=== PATIENT | female | born 1990 | race African-American/Black ===

== ENCOUNTER 2016-07-11 04:20 | Emergency (ER) | payer MEDICAID ==
[2016-07-11 04:27] VITALS: BP 111/62
== END 2016-07-11 05:55 | disposition left against medical advice (07) ==
LOC: ER 04:20
DX: Z53.21 Procedure and treatment not carried out due to patient leaving prior to being seen by health care provider (principal)

== ENCOUNTER 2016-08-17 15:28 | Outpatient (CLI) | payer MEDICAID ==
--- NOTE | 2016-08-17 16:00 | L&D Flow Sheet ---
LD Flowsheet Datetime Report Generated by CPN: 08/17/2016 16:00 Datetime: 08/17/2016 15:55 Pain Pain Scale: 3 (Kinga Candelario, RN) Pain Presence: Intermittent (Kinga Candelario, RN) Pain Type: Cramping (Kinga Candelario, RN) Pain Location: Abdomen (Kinga Candelario, RN) Vaginal Exam Vaginal Bleeding: None (Kinga Candelario, RN) Maternal Assessment Level of Consciousness: Fully Conscious (Kinga Candelario, RN) DTR's/Clonus: DTRs 2+; No Clonus (Kinga Candelario, RN) Breath Sounds, Left: Clear and Equal (Kinga Candelario, RN) Breath Sounds, Right: Clear and Equal (Kinga Candelario, RN) Nausea/Vomiting: Denies (Kinga Candelario, RN) RUQ Epigastric Pain: Denies (Kinga Candelario, RN) Datetime: 08/17/2016 15:54 Vital Signs NBP Sys/Jennifer/Mean (mmHg): 96 (QS system process) : 53 (QS system process) : 70 (QS system process) Pulse: 72 (QS system process)
[2016-08-17 16:19] LABS: APPEARANCE,URINE SLIGHTLY-CLOUDY; BILIRUBIN,URINE NEGATIVE (NEGATIVE); GLUCOSE, URINE NEGATIVE (NEGATIVE); KETONES,URINE NEGATIVE (NEGATIVE); LEUKOCYTE ESTERASE,URINE LARGE (NEGATIVE); NITRITE,URINE NEGATIVE (NEGATIVE); PROTEIN,URINE NEGATIVE (NEGATIVE); URINE SPECIFIC GRAVITY 1.011; UROBILINOGEN,URINE NEGATIVE mg/dL (<2.0)
[2016-08-17 16:32] LABS: URINE BARBITURATES SCREEN NEGATIVE; URINE METHADONE SCREEN NEGATIVE; URINE OPIATES LOW NEGATIVE; URINE PHENCYCLIDINE SCREEN NEGATIVE
[2016-08-17] MEDS ORDERED: ONDANSETRON HCL 8 MG TABLET ONE (16:32)
--- NOTE | 2016-08-17 16:47 | Non Stress Test Report ---
Non Stress Test Datetime Report Generated by CPN: 08/17/2016 16:47 DEMOGRAPHIC EGA NST: 35.1 INDICATION Indication for Study: Ordered by Provider Indication for Study (NST) Other: Labor Check MONITORING Monitor Explained: Monitor Explained; Test Explained; Patient Verbalized Understanding Time on Monitor: 08/17/2016 15:51 Time off Monitor: 08/17/2016 16:31 NST Duration: 40 NST INTERVENTIONS NST Interventions: PO Hydration Physician Notified NST: Dr. Yoo BABY A: [id number] BABY A Movement : Present Contraction Frequency : 0 FHR Baseline : 140 Accelerations : 15X15 Decelerations : None Variability : Moderate 6-25bpm NST Review: Meets Criteria for Reactive NST NST Review and Verified By : PAULA Arriaga Results: Reactive NST REPORT Report Trigger: Send Report
== END 2016-08-17 16:37 | disposition home or self-care (01) ==
LOC: LC 15:28
PROVIDERS: ATTEND Student in an Organized Health Care Education/Training Program
PROC: 4A1HXCZ Monitoring of Products of Conception, Cardiac Rate, External Approach (ICD-10-PCS; principal; 2016-08-17)
DX: Z34.93 Encounter for supervision of normal pregnancy, unspecified, third trimester (principal); Z36 Encounter for antenatal screening of mother; Z3A.35 35 weeks gestation of pregnancy
CPT/HCPCS: 59025; 81001; 80307; S0119

== ENCOUNTER 2016-09-08 15:08 | Outpatient (CLI) | payer MEDICAID ==
--- NOTE | 2016-09-08 20:01 | L&D Flow Sheet ---
LD Flowsheet Datetime Report Generated by CPN: 09/08/2016 20:00 Datetime: 09/08/2016 19:30 Uterine Activity Monitor Mode: External (Eladio Quiroz, RN) Frequency (min): None (Eladio Quiroz, RN) Resting Tone (Palpate): Relaxed (Eladio Quiroz, RN) Assessment A Monitor Mode: External US (Eladio Richie, RN) FHR Baseline Rate : 140 (Eladio Richie, RN) Variability: Moderate 6-25 bpm (Eladio Richie, RN) Accelerations: 15X15 (Eladio Richie, RN) Decelerations: None (Eladio Richie, RN) Datetime: 09/08/2016 19:27 Vital Signs NBP Sys/Jennifer/Mean (mmHg): 117 (QS system process) : 69 (QS system process) : 81 (QS system process) Pulse: 83 (QS system process) Datetime: 09/08/2016 19:20 Maternal Assessment Level of Consciousness: Fully Conscious (Eladio Quiroz, RN) Headache: Denies (Eladio Quiroz, RN) Nausea/Vomiting: Denies (Eladio Quiroz, RN) RUQ Epigastric Pain: Denies (Eladio Quiroz, RN) Datetime: 09/08/2016 19:00 Uterine Activity Monitor Mode: External (Eladio Richie, RN) Frequency (min): None noted (Eladio Richie, RN) Resting Tone (Palpate): Relaxed (Eladio Richie, RN) Contraction Comments: Sporadic irritability (Eladio Richie, RN) Assessment A Monitor Mode: External US (Eladio Richie, RN) FHR Baseline Rate : 140 (Eladio Richie, RN) Variability: Moderate 6-25 bpm (Eladio Richie, RN) Accelerations: 15X15 (Eladio Richie, RN) Decelerations: None (Eladio Richie, RN) Datetime: 09/08/2016 18:30 Uterine Activity Monitor Mode: External; Palpation (Hyun Negro, RNC) Frequency (min): Irr (Hyun Negro, RNC) Duration (sec): 50-90 (Hyun Negro, RNC) Resting Tone (Palpate): Relaxed (Hyun Negro, RNC) Assessment A Monitor Mode: External US (Hyun Negro, RNC) FHR Baseline Rate : 155 (Hyun Negro, RNC) Variability: Moderate 6-25 bpm (Hyun Negro, RNC) Accelerations: 15X15 (Hyun Negro, RNC) Decelerations: None (Hyun Negro, RNC) Datetime: 09/08/2016 18:00 Uterine Activity Monitor Mode: External; Palpation (Hyun Negro, RNC) Frequency (min): Irr (Hyun Negro, RNC) Resting Tone (Palpate): Relaxed (Hyun Negro, RNC) Assessment A Monitor Mode: External US (Hyun Negro, RNC) FHR Baseline Rate : 145 (Hyun Negro, RNC) Variability: Moderate 6-25 bpm (Hyun Negro, RNC) Accelerations: 15X15 (Hyun Negro, RNC) Decelerations: None (Hyun Negro, RNC) Patient Care IV/Blood Work: IV Saline Locked (Hyun Tom, RNC) Datetime: 09/08/2016 17:30 Uterine Activity Monitor Mode: External (Hyun Tom, RNC) Frequency (min): Irr (Hyun Tom, RNC) Resting Tone (Palpate): Relaxed (Hyun Tom, RNC) Assessment A Monitor Mode: External US (Hyun Negro, RNC) FHR Baseline Rate : 145 (Huyn Negro, RNC) Variability: Moderate 6-25 bpm (Hyun Negro, RNC) Accelerations: 15X15 (Hyun Negro, RNC) Decelerations: None (Hyun Negro, RNC) Datetime: 09/08/2016 17:00 Uterine Activity Monitor Mode: External; Palpation (Hyun Negro, RNC) Frequency (min): Irr (Hyun Negro, RNC) Duration (sec): 60-90 (Hyun Negro, RNC) Resting Tone (Palpate): Relaxed (Hyun Negro, RNC) Assessment A Monitor Mode: External US (Hyun Negro, RNC) FHR Baseline Rate : 135 (Hyun Negro, RNC) Variability: Moderate 6-25 bpm (Hyun Negro, RNC) Accelerations: 15X15 (Hyun Negro, RNC) Decelerations: None (Hyun Negro, RNC) Datetime: 09/08/2016 16:30 Uterine Activity Monitor Mode: External; Palpation (Hyun Negro, RNC) Frequency (min): Irr (Hyun Negro, RNC) Quality: Mild (Hyun Negro, RNC) Resting Tone (Palpate): Relaxed (Hyun Negro, RNC) Assessment A Monitor Mode: External US (Hyun Negro, RNC) FHR Baseline Rate : 135 (Hyun Negro, RNC) Variability: Moderate 6-25 bpm (Hyun Negro, RNC) Accelerations: 15X15 (Hyun Negro, RNC) Decelerations: None (Hyun Negro, RNC) Datetime: 09/08/2016 16:15 Patient Care IV/Blood Work: IV Started; IV Bolus Started (Hyun Negro, RNC)
== END 2016-09-08 20:57 | disposition home or self-care (01) ==
LOC: LC 15:08
PROVIDERS: ATTEND Obstetrics & Gynecology
PROC: 4A1HXCZ Monitoring of Products of Conception, Cardiac Rate, External Approach (ICD-10-PCS; principal; 2016-09-08)
DX: O47.1 False labor at or after 37 completed weeks of gestation (principal); Z3A.38 38 weeks gestation of pregnancy
CPT/HCPCS: 59025; 76815

== ENCOUNTER 2016-09-14 23:58 | Outpatient (CLI) | payer MEDICAID ==
[2016-09-15 00:35] LABS: APPEARANCE,URINE CLEAR; BILIRUBIN,URINE NEGATIVE (NEGATIVE); GLUCOSE, URINE NEGATIVE (NEGATIVE); KETONES,URINE NEGATIVE (NEGATIVE); LEUKOCYTE ESTERASE,URINE MODERATE (NEGATIVE); NITRITE,URINE NEGATIVE (NEGATIVE); PROTEIN,URINE NEGATIVE (NEGATIVE); UROBILINOGEN,URINE NEGATIVE mg/dL (<2.0)
[2016-09-15 01:02] LABS: URINE BARBITURATES SCREEN NEGATIVE; URINE METHADONE SCREEN NEGATIVE; URINE OPIATES LOW NEGATIVE; URINE PHENCYCLIDINE SCREEN NEGATIVE
[2016-09-15] MEDS ORDERED: ZOLPIDEM TARTRATE 5 MG TABLET PO ONE (01:53)
[2016-09-15] MEDS ORDERED: ZOLPIDEM TARTRATE 5 MG TABLET ONE (02:01)
--- NOTE | 2016-09-15 02:23 | Non Stress Test Report ---
Non Stress Test Datetime Report Generated by CPN: 09/15/2016 02:22 DEMOGRAPHIC EGA NST: 39.2 INDICATION Indication for Study: Other Indication for Study (NST) Other: LC URINE RESULTS Urine Protein, NST: Negative Urine Ketones - NST: Negative Urine Glucose - NST: Negative Urine Blood - NST: Positive MONITORING Monitor Explained: Monitor Explained; Test Explained; Patient Verbalized Understanding Time on Monitor: 09/15/2016 00:19 Time off Monitor: 09/15/2016 01:54 NST Duration: 95 NST INTERVENTIONS NST Interventions: PO Hydration Physician Notified NST: Dr. Neilsen BABY A: [id number] BABY A Movement : Present Contraction Frequency : 1.5-10 FHR Baseline : 135 Accelerations : 15X15 Decelerations : None Variability : Moderate 6-25bpm NST Review: Meets Criteria for Reactive NST NST Review and Verified By : Eddy Dickinson RN NST Results: Reactive NST REPORT Report Trigger: Send Report
--- NOTE | 2016-09-15 04:46 | L&D General Admission ---
General Admit Datetime Report Generated by CPN: 09/15/2016 04:45 INFORMATION Patient Age: 26 (08/17/2016 15:28:QS system process) EDC: 09/20/2016 00:00 (08/17/2016 15:46:Kinga Palomino RN) : 1 (08/17/2016 15:46:Kinga Palomino RN) Para: 0 (08/17/2016 16:46:Kinga Palomino RN) Para: 0 (08/17/2016 15:46:Kinga Palomino RN) Term: 0 (08/17/2016 15:46:Kinga Palomino RN) : 0 (08/17/2016 15:46:Kinga Palomino RN) Spontaneous Abortions: 0 (08/17/2016 15:46:Kinga Palomino RN) Induced Abortions: 0 (08/17/2016 15:46:Kinga Palomino RN) Livin (08/17/2016 15:46:Kinga Palomino RN) Cesareans: 0 (08/17/2016 15:46:Kinga Palomino RN) VBACs: 0 (08/17/2016 15:46:Kinga Palomino RN) Ectopic: 0 (08/17/2016 15:46:Kinga Palomino RN) Multiple Births: 0 (08/17/2016 15:46:Kinga Palomino RN) Baby, Number in Womb: 1 (08/17/2016 16:46:Kinga Palomino RN) Baby, Number in Womb: 0 (08/17/2016 15:46:Kinga Palomino RN) CARE Primary It Desktop Support Specialist: [facility] (08/17/2016 15:46:Kinga Palomino RN) Adequate Care: Yes (08/17/2016 15:46:Kinga Palomino RN) Height (in): 60 (08/17/2016 16:14:QS system process) ALLERGIES Medication Allergy: No (08/17/2016 15:46:Kinga Palomino RN) Medication Allergies: No Known Allergies (07/11/2016) (08/17/2016 15:28:QS system process) Latex Allergy: No Latex Allergies (08/17/2016 15:46:Kinga Palomino RN) COMMUNICATION Primary Language: Irish (08/17/2016 15:46:Kinga Palomino RN) Medical Tx Preferred Language: Irish (08/17/2016 15:46:Kinga Palomino RN) Communication Barrier(s): None (08/17/2016 15:46:Kinga Palomino RN) DEMOGRAPHICS Address: [address] [place] [address], [address] [place] [address] (09/08/2016 15:08:QS system process) Address: [address] [place] [address] (08/17/2016 15:28:QS system process) Zipcode: [address] (08/17/2016 15:28:QS system process) Home (08/17/2016 15:28:QS system process) Work (09/08/2016 15:08:QS system process) Work (08/17/2016 15:28:QS system process) SSN: [id number] (08/17/2016 15:28:QS system process) Next of Kin Name: YONNY ELLIS (08/17/2016 15:28:QS system process) Next of Kin (08/17/2016 15:28:QS system process) Next of Kin Relationship: OR (08/17/2016 15:28:QS system process) Date of : 1990 (08/17/2016 15:28:QS system process) Marital Status: Single (08/17/2016 15:28:QS system process) Sex: Female (08/17/2016 15:28:QS system process) Race: (08/17/2016 15:28:QS system process) Ethnicity: Non- or (08/17/2016 15:28:QS system process) Anglican: None (08/17/2016 15:28:QS system process) DRUG AND ALCOHOL USE Alcohol: No (08/17/2016 15:46:Kinga Palomino RN) Cigarettes: Former Smoker. [id number] (08/17/2016 15:46:Kinga Palomino RN) Marijuana: No (08/17/2016 15:46:Kinga Palomino RN) Cocaine: No (08/17/2016 15:46:Kinga Palomino RN) Other Illicit Drugs: No (08/17/2016 15:46:Kinga Palomino RN) VACCINE HISTORY Influenza Vaccine: Yes (08/17/2016 15:46:Nicole Whitfield RN) Pneumococcal Vaccine: No (08/17/2016 15:46:Nicole Whitfield RN) Tetanus Vaccine: Yes (08/17/2016 15:46:Kinga Palomino RN) Tdap Vaccine: Yes (08/17/2016 15:46:Kinga Palomino RN) Hepatitis B Vaccine: Yes (08/17/2016 15:46:Nicole Whitfield RN) Receptionist Telephone Operator: Marjan (08/17/2016 15:46:Nicole Whitfield RN) Feeding Preference: Breast (08/17/2016 15:46:Nicole Whitfield RN) Tubal Ligation: No (08/17/2016 15:46:Nicole Whitfield RN) Tubal Authorization Signed: N/A (08/17/2016 15:46:Nicole Whitfield RN) Consent: N/A (08/17/2016 15:46:Nicole Whitfield RN) Consent Signed: N/A (08/17/2016 15:46:Nicole Whitfield RN) Other Pain Management Plans: unsure (08/17/2016 15:46:Nicole Whitfield RN) Other Labor and Delivery Plans: skin to skin (08/17/2016 15:46:Nicole Whitfield RN) Cultural/Spritual Practice: No (08/17/2016 15:46:Nicole Whitfield RN) Spir/Cult Dietary Needs: No (08/17/2016 15:46:Nicole Whitfield RN) LIVING SITUATION/DISCHARGE PLAN Living Arrangements: Apartment (08/17/2016 15:46:Nicole Whitfield RN) Adequate Access to:: Electric; Heat; Refrigeration; Plumbing/Running water; Phone; Transportation (08/17/2016 15:46:Nicole Whitfield RN) WIC Program: Yes (08/17/2016 15:46:Nicole Whitfield RN) Discharge Film Mounter Person: Anny Parkeri/girlfriend (08/17/2016 15:46:Nicole Whitfield RN) Person to Help after Discharge: Anny (08/17/2016 15:46:Nicole Whitfield RN) Currently Using Commun Resources: Yes (08/17/2016 15:46:Nicole Whitfield RN) Specify Current Resource Used: Medicaid (08/17/2016 15:46:Nicole Whitfield RN) Outside Agency/Model Builder: No (08/17/2016 15:46:Nicole Whitfield RN) Car Seat for Discharge: Yes (08/17/2016 15:46:Nicole Whitfield RN) Adoption Requested: No (08/17/2016 15:46:Nicole Whitfield RN) Pt Contact w/ Post : N/A (08/17/2016 15:46:Nicole Whitfield RN) LABS Blood Type: A Positive (08/17/2016 15:46:Nicole Whitfield RN) Group Beta Strep: positive (08/17/2016 15:46:Nicole Whitfield RN) Gonorrhea: Negative (08/17/2016 15:46:Nicole Whitfield RN) Chlamydia: Negative (08/17/2016 15:46:Nicole Whitfield RN) RPR/VDRL: Nonreactive (08/17/2016 15:46:Nicole Whitfield RN) HIV Exposure Test: Negative (08/17/2016 15:46:Nicole Whitfield RN) Hepatitis B: Negative (08/17/2016 15:46:Nicole Whitfield RN) Rubella: Non-Immune (08/17/2016 15:46:Nicole Whitfield RN) Varicella: Non Susceptible (08/17/2016 15:46:Nicole Whitfield RN) OB/PREVIOUS HISTORY History of Previous : No (08/17/2016 15:46:Kinga Palomino RN) History of Gestational Diabetes: No (08/17/2016 15:46:Kinga Palomino RN) History of PIH: No (08/17/2016 15:46:Kinga Palomino RN) History of Incompetent Cervix: No (08/17/2016 15:46:Kinga Palomino RN) History of Placenta Previa/Abrup: No (08/17/2016 15:46:Kinga Palomino RN) History of Macrosomia: No (08/17/2016 15:46:Kinga Palomino RN) History of IUGR: No (08/17/2016 15:46:Kinga Palomino RN) History of Hemorrhage: No (08/17/2016 15:46:Kinga Palomino RN) History of Loss/Stillborn: No (08/17/2016 15:46:Kinga Palomino RN) History of : No (08/17/2016 15:46:Kinga Palomino RN) History of D (Rh) Sensitization: No (08/17/2016 15:46:Kinga Palomino RN) History Recurrent Loss/Stillborn: No (08/17/2016 15:46:Kinga Palomino RN) History Depression/PP Depression: No (08/17/2016 15:46:Kinga Palomino RN) History of Uterine Anomaly/MARIS: No (08/17/2016 15:46:Kinga Palomino RN) History of Infertility: No (08/17/2016 15:46:Kinga Palomino RN) History of ART Treatment: No (08/17/2016 15:46:Kinga Palomino RN) History of MARIS: No (08/17/2016 15:46:Kinga Palomino RN) Comments Obstetrical History: G1: current (08/17/2016 15:46:Nicole Whitfield RN) MEDICAL HISTORY Med Hx Diabetes: No (08/17/2016 15:46:Kinga Palomino RN) Med Hx Hypertension: No (08/17/2016 15:46:Kinga Palomino RN) Med Hx Heart Disease: No (08/17/2016 15:46:Kinga Palomino RN) Med Hx Autoimmune Disorder: No (08/17/2016 15:46:Kinga Palomino RN) Med Hx Kidney Disease/UTI: No (08/17/2016 15:46:Kinga Palomino RN) Med Hx Neurologic/Epilepsy: No (08/17/2016 15:46:Kinga Palomino RN) Med Hx Psychiatric Disorders: No (08/17/2016 15:46:Kinga Palomino RN) Med Hx Hepatitis/Liver Disease: No (08/17/2016 15:46:Kinga Palomino RN) Med Hx Varicosities/Phlebitis: No (08/17/2016 15:46:Kinga Palomino RN) Med Hx Thyroid Dysfunction: No (08/17/2016 15:46:Kinga Palomino RN) Med Hx Trauma/Violence: No (08/17/2016 15:46:Kinga Palomino RN) Med Hx Blood Transfusion: No (08/17/2016 15:46:Kinga Palomino RN) Med Hx Pulmonary (Asthma,TB): No (08/17/2016 15:46:Kinga Palomino RN) Med Hx Breast: No (08/17/2016 15:46:Kinga Palomino RN) Med Hx COMPENSATION AND HRIS ANALYST Surgery: No (08/17/2016 15:46:Kinga Palomino RN) Med Hx Hospitalization/Surgery: No (08/17/2016 15:46:Kinga Palomino RN) Med Hx Anesthetic Complications: No (08/17/2016 15:46:Kinga Palomino RN) Med Hx Abnormal Pap Smear: No (08/17/2016 15:46:Kinga Palomino RN) Other Medical Diseases: No (08/17/2016 15:46:Kinga Palomino RN) Med Hx Significant Family Hx: No (08/17/2016 15:46:Kinga Palomino RN) INFECTIOUS HISTORY Inf Hx Gonorrhea: No (08/17/2016 15:46:Kinga Palomino RN) Inf Hx Chlamydia: No (08/17/2016 15:46:Kinga Palomino RN) Inf Hx Syphilis: No (08/17/2016 15:46:Kinga Palomino RN) Inf Hx HIV/AIDS: No (08/17/2016 15:46:Kinga Palomino RN) Inf Hx Human Papilloma Virus: No (08/17/2016 15:46:Kinga Palomino RN) Inf Hx Pt/Partner Genital Herpes: No (08/17/2016 15:46:Kinga Palomino RN) Inf Hx Tuberculosis/Exposure: No (08/17/2016 15:46:Kinga Palomino RN) Inf Hx Hepatitis B,C: No (08/17/2016 15:46:Kinga Palomino RN) Inf Hx Rash or Viral Illness: No (08/17/2016 15:46:Kinga Palomino RN) GENETIC HISTORY Gen Hx Age >=35 at MARYA: No (08/17/2016 15:46:Kinga Palomino RN) Gen Hx Thalassemia: No (08/17/2016 15:46:Kinga Palomino RN) Gen Hx Congenital Heart Defect: No (08/17/2016 15:46:Kinga Palomino RN) Gen Hx Neural Tube Defect: No (08/17/2016 15:46:Kinga Palomino RN) Gen Hx Down's Syndrome: No (08/17/2016 15:46:Kinga Palomino RN) Gen Hx Jose Raul-Sachs: No (08/17/2016 15:46:Kinga Palomino RN) Gen Hx Sindhu: No (08/17/2016 15:46:Kinga Palomino RN) Gen Hx Familial Dysautonomia: No (08/17/2016 15:46:Kinga Palomino RN) Gen Hx Sickle Cell Disease/Trait: No (08/17/2016 15:46:Kinga Palomino RN) Gen Hx Hemophilia/Blood Disorder: No (08/17/2016 15:46:Kinga Palomino RN) Gen Hx Muscular Dystrophy: No (08/17/2016 15:46:Kinga Palomino RN) Gen Hx Cystic Fibrosis: No (08/17/2016 15:46:Kinga Palomino RN) Gen Hx Huntingtons Chorea: No (08/17/2016 15:46:Kinga Palomino RN) Gen Hx Mental Retardation/Autism: No (08/17/2016 15:46:Kinga Palomino RN) Gen Hx Tested for Fragile X: No (08/17/2016 15:46:Kinga Palomino RN) Gen Hx Other Inher/Chromosomal: No (08/17/2016 15:46:Kinga Palomino RN) Gen Hx Maternal Metabolic DO: No (08/17/2016 15:46:Kinga Palomino RN) Gen Hx Pt Father or FOB Defect: No (08/17/2016 15:46:Kinga Palomino RN) Gen Hx Other Genetic History: No (08/17/2016 15:46:Kinga Palomino RN) Gen Hx Drugs/Meds since LMP: No (08/17/2016 15:46:Kinga Palomino RN)
--- NOTE | 2016-09-15 04:46 | L&D Current Admission ---
Current Admit Datetime Report Generated by CPN: 09/15/2016 04:45 ADMISSION INFORMATION Chief Complaint: Contractions (09/15/2016 00:23:Nicole Whitfield RN) Chief Complaint: flu symptoms, cramping, vomiting (08/17/2016 15:55:Kinga Palomino RN)
--- NOTE | 2016-09-15 04:46 | L&D Discharge Summary ---
OB Discharge Summary Datetime Report Generated by CPN: 09/15/2016 04:45 DISCHARGE DIAGNOSIS Diagnosis/Symptoms: False Labor Diagnoses/Symptoms Other: Not in labor Gestation: 39.1 Number of Babies in Womb: 1 Parity: 0 DIET/ACTIVITY/RESTRICTIONS Diet: Regular Activity: Normal Activity TEACHING/INSTRUCTIONS/REFERRALS Instructions Given To: patient and sig other Instructions Understood: Patient Verbalized Understanding; Support Person Verbalized Understanding Referrals: None Educational Materials- Other: care notes on term labor instructions and kick counts DISCHARGE INFORMATION Discharged AMA: No Discharge Date/Time: 09/15/2016 02:09 Discharged To: Home Discharge Provider Name: Dr. Yoo Discharge Method: Wheelchair Condition: Stable FOLLOW UP INFORMATION Follow Up With: [facility] Follow Up On: As Scheduled Follow Up Phone Number: Other-Annotate Comments: Pt. d/c to home at this time via wheelchair and in stable condition. Pt. verbalizes understanding for POC and denied any further needs at this time. Pt. denies any questions or concerns prior to d/c states she has an appt in the office tomorrow that she will go to. All pt. belongings were taken with pt. Pt. off of unit and care relinquished at this time
--- NOTE | 2016-09-15 04:46 | L&D Admission Assessment ---
LD ADM ASMT Datetime Report Generated by CPN: 09/15/2016 04:45 Weight (lb): 150 (09/15/2016 01:04:QS system process) Weight (kg): 68.2 (09/15/2016 01:04:QS system process) BMI: 29.3 (09/15/2016 01:04:QS system process) Pain Scale: 5 (09/15/2016 00:23:Nicole Whitfield RN) Pain Scale: 5 (09/15/2016 00:19:Nicole Whitfield RN) Pain Presence: Intermittent (09/15/2016 00:23:Nicole Whitfield RN) Pain Presence: Intermittent (09/15/2016 00:19:Nicole Whitfield RN) Pain Type: Contraction (09/15/2016 00:23:Nicole Whitfield RN) Pain Type: Contraction (09/15/2016 00:19:Nicole Whitfield RN) Pain Location: Abdomen (09/15/2016 00:23:Nicole Whitfield RN) Pain Location: Abdomen (09/15/2016 00:19:Nicole Whitfield RN) Pain Comments: pressure 2/3 when not having ctn's (09/15/2016 00:19:Nicole Whitfield RN) Frequency (min): 1.5-5.5 (09/15/2016 01:50:Nicole Whitfield RN) Frequency (min): 4.5-7 (09/15/2016 01:20:Nicole Whitfield RN) Frequency (min): 7-9 (09/15/2016 00:50:Nicole Nahid, RN) Frequency (min): 7-10 (09/15/2016 00:23:Nicole Nahid, RN) Duration (sec): 50-100 (09/15/2016 01:50:Nicole Nahid, RN) Duration (sec): 80-110 (09/15/2016 01:20:Nicole Nahid, RN) Duration (sec): 80-100 (09/15/2016 00:50:Nicole Nahid, RN) Quality: Moderate (09/15/2016 01:50:Nicole Nahid, RN) Quality: Moderate (09/15/2016 01:20:Nicole Nahid, RN) Quality: Moderate (09/15/2016 00:50:Nicole Nahid, RN) Pattern: Normal: <= 5 Contractions in 10 Minutes (09/15/2016 01:50:Nicole Nahid, RN) Pattern: Normal: <= 5 Contractions in 10 Minutes (09/15/2016 01:20:Nicole Nahid, RN) Pattern: Normal: <= 5 Contractions in 10 Minutes (09/15/2016 00:50:Nicole Nahid, RN) Resting Tone [place]: Relaxed (09/15/2016 01:50:Nicole Nahid, RN) Resting Tone [place]: Relaxed (09/15/2016 01:20:Nicole Nahid, RN) Resting Tone [place]: Relaxed (09/15/2016 00:50:Nicole Nahid, RN) Dilatation (cm): 3.0 (09/15/2016 01:24:Nicole Nahid, RN) Dilatation (cm): 2.5 (09/15/2016 00:16:Nicole Nahid, RN) Effacement (%): 80 (09/15/2016 01:24:Nicole Nahid, RN) Effacement (%): 80 (09/15/2016 00:16:Nicole Nahid, RN) Station: -1 (09/15/2016 01:24:Nicole Nahid, RN) Station: -1 (09/15/2016 00:16:Nicole Nahid, RN) Membranes Status: Intact (09/15/2016 00:23:Nicole Nahid, RN) Heart Rhythm: Regular (09/15/2016 00:23:Nicole Whitfield RN) Nailbeds: [place] (09/15/2016 00:23:Nicole Whitfield RN) Capillary Refill: Less than 3 Seconds (09/15/2016 00:23:Nicole Whitfield RN) Lower Extremities Edema: None (09/15/2016 00:23:Nicole Whitfield RN) Lower Extremities Edema Degree: None (09/15/2016 00:23:Nicole Whitfield RN) Upper Extremities Edema: None (09/15/2016 00:23:Nicole Whitfield RN) Upper Extremities Edema Degree: None (09/15/2016 00:23:Nicole Whitfield RN) Facial Edema: None (09/15/2016 00:23:Nicole Whitfield RN) Remy's Sign Left Leg: Negative (09/15/2016 00:23:Nicole Whitfield RN) Remy's Sign Right Leg: Negative (09/15/2016 00:23:Nicole Whitfield RN) DVT Risk Age: Age less than 41 years (09/15/2016 00:23:Nicole Whitfield RN) DVT Risk BMI: BMI<31 (09/15/2016 00:23:Nicole Whitfield RN) DVT Risk Surgery: None Applicable (09/15/2016 00:23:Nicole Whitfield RN) DVT Risk Other: Women Only- or (<1 month) (09/15/2016 00:23:Nicole Whitfield RN) DVT Risk Total: 1 (09/15/2016 00:23:QS system process) DVT Risk Text: Low Risk (<10%) No specific measures, early ambulation (09/15/2016 00:23:QS system process) Respiratory Effort: Unlabored; Regular Rhythm (09/15/2016 00:23:Nicole Whitfield RN) Breath Sounds, Left: Clear and Equal (09/15/2016 00:23:Nicole Whitfield RN) Breath Sounds, Right: Clear and Equal (09/15/2016 00:23:Nicole Whitfield RN) Cough Productivity: None (09/15/2016 00:23:Nicole Whitfield RN) Nausea/Vomiting: Denies (09/15/2016 00:23:Nicole Whitfield RN) Bowel Sounds: Normoactive (09/15/2016 00:23:Nicole Whitfield RN) RUQ Epigastric Pain: Denies (09/15/2016 00:23:Nicole Whitfield RN) Bowel Patterns: Soft, Formed Stool (09/15/2016 00:23:Nicole Whitfield RN) Hemorrhoids: Present (09/15/2016 00:23:Nicole Whitfield RN) Diet Type: Regular diet (09/15/2016 00:23:Nicole Whitfield RN) Last Meal: 09/14/2016 19:00 (09/15/2016 00:23:Nicole Whitfield RN) Bladder: Nondistended (09/15/2016 00:23:Nicole Whitfield RN) Frequency of Urination: No (09/15/2016 00:23:Nicole Whitfield RN) Urination Burning: No (09/15/2016 00:23:Nicole Whitfield RN) CVA Tenderness: No (09/15/2016 00:23:Nicole Whitfield RN) Vaginal Bleeding: Scant (09/15/2016 00:23:Nicole Whitfield RN) Vaginal Discharge Amount: Small (09/15/2016 00:23:Nicole Whitfield RN) Vaginal Discharge Color: White (09/15/2016 00:23:Nicole Whitfield RN) Vaginal Discharge Odor: Non-Odorous (09/15/2016 00:23:Nicole Whitfield RN) Vaginal Discharge Character: Thin (09/15/2016 00:23:Nicole Whitfield RN) Skin Color: Normal for Race (09/15/2016 00:23:Nicole Whitfield RN) Skin Temperature: Warm (09/15/2016 00:23:Nicole Whitfield RN) Skin Moisture: Dry (09/15/2016 00:23:Nicole Whitfield RN) Body Piercings/Tattoos: tattoos-3 piercings- ears (09/15/2016 00:23:Nicole Whitfield RN) [place]rell Scale Sensory Perception: No Impairment- Responds to verbal commands. Has no sensory deficit which would limit ability to feel or voice pain or discomfort (09/15/2016 00:23:Nicole Whitfield RN) Terrell Scale Moisture: Rarely Moist- Skin is usually dry. Linen only requires changing at routine intervals (09/15/2016 00:23:Nicole Whitfield RN) Terrell Scale Activity: Walks Frequently- Walks outside the room at least twice a day and inside room at least every 2 hours during the day. (09/15/2016 00:23:Nicole Whitfield RN) Terrell Scale Mobility: No Limitations- Makes major and frequent changes in position without assistance (09/15/2016 00:23:iNcole Whitfield RN) Terrell Scale Nutrition: Excellent- Eats most of every meal. Never refuses a meal. Usually eats a total of 4 or more servings of meat and dairy products. Occasionally eats between meals. Does not require supplementation (09/15/2016 00:23:Nicole Whitfield RN) Terrell Scale Friction and Shear: No Apparent Problem- Moves in bed and in chair independently and has sufficient muscle strength to lift up completely during move. Maintains good position in bed or chair at all times (09/15/2016 00:23:Nicole Whitfield RN) Terrell Scale Total: 23 (09/15/2016 00:23:QS system process) Terrell Scale Risk: No Risk of Pressure Ulcer Noted at this Time (09/15/2016 00:23:QS system process) Family Support: Significant Other supportive, at bedside frequently (09/15/2016 00:23:Nicole Whitfield RN) Emotional State: Calm/Relaxed (09/15/2016 00:23:Nicole Whitfield RN) Call Porter Within Reach: Yes (09/15/2016 00:23:Nicole Whitfield RN) Side Rails Up: Yes (09/15/2016 00:23:Nicole Whitfield RN) Bed Wheels Locked: Yes (09/15/2016 00:23:Nicole Whitfield RN) Arm Bands Present: Yes (09/15/2016 00:23:Nicole Whitfield RN) Isolation: [place] (09/15/2016 00:23:Nicole Whitfield RN) Fall Risk History of Falling: (0) No (09/15/2016 00:23:Nicole Whitfield RN) Fall Risk Secondary Diagnosis: (0) No (09/15/2016 00:23:Nciole Whitfield RN) Fall Risk Ambulatory Aid: (0) None/Bedrest/Wheelchair/Nurse Assist (09/15/2016 00:23:Nicole Whitfield RN) Fall Risk IV Therapy: (0) No (09/15/2016 00:23:Nicole Whitfield RN) Fall Risk Gait: (0) Normal/Bedrest/Immobile (09/15/2016 00:23:Nicole Whitfield RN) Fall Risk Mental Status: (0) Oriented to Own Ability (09/15/2016 00:23:Nicole Whitfield RN) Fall Risk Score: 0 (09/15/2016 00:23:QS system process) Fall Risk Score Definition: No Risk: No action required (09/15/2016 00:23:QS system process) Recent Exp Communicable Disease: No (09/15/2016 00:23:Nicole Whitfield RN) Cough or Fever: No (09/15/2016 00:23:Nicole Whitfield RN) Foreign Travel Past 10 Days: No (09/15/2016 00:23:Nicole Whitfield RN) Open Wounds or Sores: No (09/15/2016 00:23:Nicole Whitfield RN) Prior Antibiotic Resistance Tx: No (09/15/2016 00:23:Nicole Whitfield RN) Cultures Obtained: Not Applicable (09/15/2016 00:23:Nicole Whitfield RN) Isolation Initiated: No (09/15/2016 00:23:Nicole Whitfield RN) Pt/Family Education: Not Applicable (09/15/2016 00:23:Nicole Whitfield RN) FHR Baseline Rate (bpm) Baby A: 135 (09/15/2016 01:50:Nicole Whitfield RN) FHR Baseline Rate (bpm) Baby A: 130 (09/15/2016 01:20:Nicole Whitfield RN) FHR Baseline Rate (bpm) Baby A: 125 (09/15/2016 00:50:Nicole Whitfield RN) Variability Baby A: Moderate 6-25 bpm (09/15/2016 01:50:Nicole NahidPAULA hogue) Variability Baby A: Moderate 6-25 bpm (09/15/2016 01:20:Nicole Nahid, RN) Variability Baby A: Moderate 6-25 bpm (09/15/2016 00:50:Nicole Nahid, RN) Accelerations Baby A: 15X15 (09/15/2016 01:50:Nicole Whitfield RN) Accelerations Baby A: 15X15 (09/15/2016 01:20:Nicolecarlitos Whitfield RN) Accelerations Baby A: 15X15 (09/15/2016 00:50:Nicole Whitfield RN) Decelerations Baby A: None (09/15/2016 01:50:Nicole Whitfield RN) Decelerations Baby A: None (09/15/2016 01:20:Nicole Whitfield RN) Decelerations Baby A: None (09/15/2016 00:50:Nicole Whitfield RN)
--- NOTE | 2016-09-15 04:46 | L&D Flow Sheet ---
LD Flowsheet Datetime Report Generated by CPN: 09/15/2016 04:45 Datetime: 09/15/2016 02:09 Stage of : OB Triage (Nicole Nahid, RN) Communication Comments: Pt. d/c to home at this time. see discharge summary for more information (Nicole Nahid, RN) Datetime: 09/15/2016 02:00 Communication Comments: Care notes taught and reviewed on kick counts and the labor process. Pt. able to peform teachback with no difficulties noted. Pt. denied any questions or concerns at this time (Nicole Nahid, RN) Datetime: 09/15/2016 01:54 Communication Comments: pt. updated on poc at this time and verbalizes understanding. she denies any questions or concerns (Nicole Nahid, RN) Datetime: 09/15/2016 01:52 NBP Sys/Jennifer/Mean (mmHg): 120 (QS system process) : 60 (QS system process) : 83 (QS system process) Pulse: 62 (QS system process) LaborFlag: OB Triage (QS system process) Datetime: 09/15/2016 01:50 Monitor Mode: External (Nicole Nahid, RN) Frequency (min): 1.5-5.5 (Nicole Nahid, RN) Quality: Moderate (Nicole Nahid, RN) Duration (sec): 50-100 (Nicole Nahid, RN) Duration Criteria: Less than Two 120 Second Contractions (Nicole Nahid, RN) Pattern: Normal: <= 5 Contractions in 10 Minutes (Nicole Nahid, RN) Resting Tone ([place]): Relaxed (Nicole Nahid, RN) Monitor Mode: External US (Nicole Nahid, RN) FHR Baseline Rate : 135 (Nicole Nahid, RN) Variability: Moderate 6-25 bpm (Nicole Nahid, RN) Accelerations: 15X15 (Nicole Nahid, RN) Decelerations: None (Nicole Nahid, RN) Communication Comments: Dr. Martínez called and notified of pt. arrival, complaint, hx, urine results, SVE, FHT, and toco tracing. New orders received that pt. may d/c to home with ambien 10 mg po x1 prior to d/c (Nicole Nahid, RN) Datetime: 09/15/2016 01:38 I/O Interventions: Up to BR (Nicole Nahid, RN) Datetime: 09/15/2016 01:24 Dilatation (cm): 3.0 (Nicole Nahid, RN) Effacement (%): 80 (Nicole Nahid, RN) Station: -1 (Nicole Nahid, RN) Exam by: Inocente Whitfield RN (Nicole Nahid, RN) Vaginal Bleeding: None (Nicole Nahid, RN) Cervix, Consistency: Soft (Nicole Nahid, RN) Cervix, Position: Posterior (Nicole Nahid, RN) Datetime: 09/15/2016 01:22 NBP Sys/Jennifer/Mean (mmHg): 136 (QS system process) : 78 (QS system process) : 103 (QS system process) Pulse: 62 (QS system process) LaborFlag: OB Triage (QS system process) Datetime: 09/15/2016 01:20 Monitor Mode: External; Palpation (Nicole Nahid, RN) Frequency (min): 4.5-7 (Nicole Nahid, RN) Quality: Moderate (Nicole Nahid, RN) Duration (sec): 80-110 (Nicole Nahid, RN) Duration Criteria: Less than Two 120 Second Contractions (Nicole Nahid, RN) Pattern: Normal: <= 5 Contractions in 10 Minutes (Nicole Nahid, RN) Resting Tone (Palpate): Relaxed (Nicole Nahid, RN) Monitor Mode: External US (Nicole Nhaid, RN) FHR Baseline Rate : 130 (Nicole Nahid, RN) Variability: Moderate 6-25 bpm (Nicole Nahid, RN) Accelerations: 15X15 (Nicole Nahid, RN) Decelerations: None (Nicole Nahid, RN) Datetime: 09/15/2016 01:12 Monitor Interventions for UA: [place] Adjusted (Nicole Nahid, RN) Datetime: 09/15/2016 00:53 NBP Sys/Jennifer/Mean (mmHg): 117 (QS system process) : 69 (QS system process) : 88 (QS system process) Pulse: 58 (QS system process) Temperature (F): 98.3 (Nicole Nahid, RN) Temperature (C): 36.8 (QS system process) Temperature Route: Oral (Nicole Nahid, RN) LaborFlag: OB Triage (QS system process) Datetime: 09/15/2016 00:50 Monitor Mode: External; Palpation (Nicole Nahid, RN) Frequency (min): 7-9 (Nicole Nahid, RN) Quality: Moderate (Nicole Nahid, RN) Duration (sec): 80-100 (Nicole Nahid, RN) Duration Criteria: Less than Two 120 Second Contractions (Nicole Nahid, RN) Pattern: Normal: <= 5 Contractions in 10 Minutes (Nicole Nahid, RN) Resting Tone (Palpate): Relaxed (Nicole Nahid, RN) Monitor Mode: External US (Nicole Nahid, RN) FHR Baseline Rate : 125 (Nicole Nahid, RN) Variability: Moderate 6-25 bpm (Nicole Nahid, RN) Accelerations: 15X15 (Nicole Nahid, RN) Decelerations: None (Nicole Nahid, RN) Datetime: 09/15/2016 00:23 Frequency (min): 7-10 (Nicole Nahid, RN) Pain Scale: 5 (Nicole Nahid, RN) Pain Presence: Intermittent (Nicole Nahid, RN) Pain Type: Contraction (Nicole Nahid, RN) Pain Location: Abdomen (Nicole Nahid, RN) Membrane Status: Intact (Nicole Nahid, RN) Vaginal Bleeding: None (Annotations: pt. states she lost her mucous plug earlier) (Nicole Nahid, RN) Breath Sounds, Left: Clear and Equal (Nicole Nahid, RN) Breath Sounds, Right: Clear and Equal (Nicole Nahid, RN) Nausea/Vomiting: Denies (Nicole Nahid, RN) RUQ Epigastric Pain: Denies (Nicole Nahid, RN) LaborFlag: OB Triage (QS system process) Datetime: 09/15/2016 00:22 NBP Sys/Jennifer/Mean (mmHg): 116 (QS system process) : 62 (QS system process) : 81 (QS system process) Pulse: 59 (QS system process) LaborFlag: OB Triage (QS system process) Datetime: 09/15/2016 00:21 Instructional Method: Verbal (Nicole Whitfield RN) Plan of Care: Plan of Care Discussed (Nicole Whitfield RN) Unit Routine: [place] to Room; Call Porter; Bed; Visiting Policy; Waiting Areas (Nicole Whitfield RN) Datetime: 09/15/2016 00:19 Pain Scale: 5 (Nicole Whitfield RN) Pain Presence: Intermittent (Nicloe Whitfield RN) Pain Type: Contraction (Nicole Whitfield, PAULA) Pain Location: Abdomen (Nicole Whitfield RN) Pain Assessment Comments: pressure 2/3 when not having ctn's (Nicole Whitfield RN) Patient Position/Activity: Left Tilt (Nicole Whitfield RN) LaborFlag: OB Triage (QS system process) Datetime: 09/15/2016 00:16 Dilatation (cm): 2.5 (Nicole Whitfield RN) Effacement (%): 80 (Nicole Whitfield RN) Station: -1 (Nicole Whitfield RN) Exam by: Inocente Whitfield RN (Nicole Whitfield RN) Vaginal Bleeding: None (Nicole Whitfield RN) Cervix, Consistency: Soft (Nicole Whitfield RN) Cervix, Position: Posterior (Nicole Whitfield RN) Datetime: 09/15/2016 00:10 Stage of : OB Triage (Nicole Whitfield RN)
--- NOTE | 2016-09-15 04:46 | Antepartum Discharge Summary ---
Antepartum DC Datetime Report Generated by CPN: 09/15/2016 04:45 Diet: Regular (09/15/2016 02:20:Nicole Whitfield RN) Instructions Given To: patient and sig other (09/15/2016 02:20:Nicole Whitfield RN) Instructions Understood: Patient Verbalized Understanding; Support Person Verbalized Understanding (09/15/2016 02:20:Nicole Whitfield RN) Referrals: None (09/15/2016 02:20:Nicole Whitfield RN) Educational Materials- Other: care notes on term labor instructions and kick counts (09/15/2016 02:20:Nicole Whitfield RN) Discharged AMA: No (09/15/2016 02:20:Nicole Whitfield RN) Discharge Date/Time: 09/15/2016 02:09 (09/15/2016 02:20:Nicole Whitfield RN) Discharged To: Home (09/15/2016 02:20:Nicole Whitfield RN) Discharge Method: Wheelchair (09/15/2016 02:20:Nicole Whitfield RN) Condition: Stable (09/15/2016 02:20:Nicole Whitfield RN) Follow Up With: [facility] (09/15/2016 02:20:Nicole Whitfield RN) Follow Up On: As Scheduled (09/15/2016 02:20:Nicole Whitfield RN) Follow Up Phone Number: Other-Annotate (09/15/2016 02:20:Nicole Whitfield RN) Comments: Pt. d/c to home at this time via wheelchair and in stable condition. Pt. verbalizes understanding for POC and denied any further needs at this time. Pt. denies any questions or concerns prior to d/c states she has an appt in the office tomorrow that she will go to. All pt. belongings were taken with pt. Pt. off of unit and care relinquished at this time (09/15/2016 02:20:Nicole Whitfield RN)
== END 2016-09-15 02:09 | disposition home or self-care (01) ==
LOC: LC 23:58
PROVIDERS: ATTEND Specialist
PROC: 4A1HXCZ Monitoring of Products of Conception, Cardiac Rate, External Approach (ICD-10-PCS; principal; 2016-09-14)
DX: O47.1 False labor at or after 37 completed weeks of gestation (principal); Z3A.39 39 weeks gestation of pregnancy
CPT/HCPCS: 59025; 81005; 80307; J3490

== ENCOUNTER 2016-09-15 13:57 | Inpatient (IN) | payer MEDICAID ==
[2016-09-15] MEDS ORDERED: PENICILLIN G POTASSIUM 5,000,000 UNIT in DEXTROSE 5%-WATER 100 ML IV ONE (14:02)
[2016-09-15] MEDS ORDERED: RINGERS SOLUTION,LACTATED 1,000 ML IV ONE (14:02)
[2016-09-15] MEDS ORDERED: PENICILLIN G-K 5 MILLION UNIT VIAL ONE (14:09)
[2016-09-15] MEDS ORDERED: KETOROLAC TROMETHAMINE INJ/PF 30 MG/1 ML SDV ONE (15:12)
[2016-09-15 16:19] LABS: HEMATOCRIT 28.3 % (36.0-47.0); HEMOGLOBIN 9.1 g/dL (12.0-15.5); MEAN CORPUSCULAR VOLUME 91 fl (80-97); RED BLOOD COUNT 3.12 10^6/uL (3.72-5.28); RED CELL DISTRIBUTION WIDTH 14.2 % (11.5-14.0); WHITE BLOOD COUNT 15.8 10^3/uL (4.0-10.5)
[2016-09-15] MEDS: RINGERS SOLUTION,LACTATED 1,000 ML IV PRN ×2 (16:32→17:20)
[2016-09-15] MEDS ORDERED: KETOROLAC TROMETHAMINE INJ/PF 30 MG/1 ML SDV IV ONE (16:48)
[2016-09-15 16:51] LABS: BAND NEUTROPHILS % (MANUAL) 2 % (3-5); BASOPHILS % (MANUAL) 0 % (0-2); EOSINOPHILS % (MANUAL) 0 % (0-6); LYMPHOCYTES % (MANUAL) 4 % (13-45); TOTAL CELLS COUNTED 100
[2016-09-15 16:52] LABS: RBC MORPHOLOGY COMMENT NORMO-CYTIC/CHROMIC
[2016-09-15] MEDS ORDERED: IBUPROFEN 800 MG TABLET ONE (17:17)
--- NOTE | 2016-09-15 17:26 | Admission Physical ---
Datetime Report Generated by CPN: 09/15/2016 17:26 CURRENT ADMISSION Hx Assessment: The History has been Reviewed and is Current Chief Complaint: Uterine Contractions Indication for Induction: Not Applicable Admit Plan: Admit to Unit; Initiate Labor Protocol ALLERGIES Medication Allergies: No Medication Allergies: No Known Allergies (07/11/2016) Latex: No Latex Allergies OBSTETRICAL HISTORY EDC: 09/20/2016 00:00 : 1 Para: 0 Para: 0 Term: 0 : 0 SAB: 0 IAB: 0 Ectopic: 0 Livin Cesareans: 0 VBACs: 0 Multiple Births: 0 Gestational Diabetes: No Rh Sensitization: No Incompetent Cervix: No MARIS: No Infertility: No ART Treatment: No Uterine Anomaly: No IUGR: No Hx Previous C/S: No Macrosomia: No Hx Loss/Stillborn: No PIH: No Hx : No Placenta Previa/Abruption: No Depression/PP Depression: No PTL/PROM: No Post Hemorrhage: No Obstetrical History Comments: G1: current SEE RECORDS Alcohol: No Marijuana : No Cocaine: No Other Illicit Drugs: No Cigarettes: Former Smoker. 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 Heart Disease: No Hosp/Surgery: No Autoimmune Disorder: No Anesthetic Complications: No Kidney Disease: No Abnormal Pap Smear: No Neuro/Epilepsy: No Psychiatric Disorders: No Other Medical Diseases: No Hepatitis/Liver Disease: No Significant Family History: No Varicosities/Phlebitis: No Trauma/Violence : No Thyroid Dysfunction: No INFECTIOUS HISTORY Gonorrhea: No Genital Herpes: No Chlamydia: No Tuberculosis: No Syphilis: No Hepatitis: No HIV/AIDS Exposure: No Rash or Viral Illness: No HPV: No PHYSICAL EXAM General: Normal HEENT: Normal Neurologic: Normal Thyroid: Normal Heart: Normal Lungs: Normal Breast: Normal Back: Normal Abdomen: Normal Genitourinary Exam: Normal Extremities: Normal DTRs: Normal Pelvic Type: Adequate Vital Signs: Reviewed; Within Normal Limits MEMBRANES Membranes: Ruptured Amniotic Fluid Color: Clear FETUS A EGA: 39.2 Monitoring: External US Decelerations: Early; Variable Admit Comment: Pt. sent from office dilated to 10cm. SROM on the way to hospital. Delivered shortly upon arrival. 26yo G1 now P1 Apos, Rubella Non Immune, GBS positive. First dose given upon admission into unit. PLANS FOR LABOR AND DELIVERY Other Pain Management Plans: unsure Feeding Preference: Breast Benefit of Breast Feed Discussed: Yes INFORMED CONSENT Assignment: Maria L Nuñez MD Signature: with User ID: Cristopher : with User ID: [email or web address]
[2016-09-15] MEDS ORDERED: BENZOCAINE/MENTHOL AEROSOL SPRAY 56 ML TOP PRN (17:34)
[2016-09-15] MEDS ORDERED: DIPH/PERTUSS(ACELL)/TETANUS VAC/PF 0.5 ML SYR (>=10YO) IM PRN (17:34)
[2016-09-15] MEDS ORDERED: MEASLES,MUMPS&RUBELLA VACC/PF 0.5 ML VIAL SUBCUT PRN (17:34)
[2016-09-15] MEDS ORDERED: DIBUCAINE 1% OINTMENT 28 GM TP PRN (17:34)
[2016-09-15] MEDS ORDERED: ZOLPIDEM TARTRATE 5 MG TABLET PO PRN (17:34)
[2016-09-15] MEDS ORDERED: PENICILLIN G POTASSIUM 2,500,000 UNIT in DEXTROSE 5%-WATER 50 ML IV SCH (18:03)
[2016-09-15] MEDS: ACETAMINOPHEN WITH CODEINE #3 TABLET PO PRN (18:28)
[2016-09-15] MEDS: FERROUS SULFATE 325 MG TABLET PO SCH (18:28)
[2016-09-15] MEDS: DOCUSATE SODIUM 100 MG CAPSULE PO SCH (18:28)
--- NOTE | 2016-09-15 19:01 | L&D Flow Sheet ---
LD Flowsheet Datetime Report Generated by CPN: 09/15/2016 19:00 Datetime: 09/15/2016 17:18 NBP Sys/Jennifer/Mean (mmHg): 106 (QS system process) : 56 (QS system process) : 77 (QS system process) Pulse: 76 (QS system process) Respirations: 18 (Renita Bellavance, RNC) Datetime: 09/15/2016 17:17 NBP Sys/Jennifer/Mean (mmHg): 108 (QS system process) : 53 (QS system process) : 76 (QS system process) Pulse: 109 (QS system process) Datetime: 09/15/2016 17:03 NBP Sys/Jennifer/Mean (mmHg): 118 (QS system process) : 58 (QS system process) : 81 (QS system process) Pulse: 106 (QS system process) Respirations: 18 (Estela Broman, RN) Datetime: 09/15/2016 16:48 NBP Sys/Jennifer/Mean (mmHg): 120 (QS system process) : 58 (QS system process) : 83 (QS system process) Pulse: 72 (QS system process) Respirations: 18 (Estela Broman, RN) Datetime: 09/15/2016 16:33 NBP Sys/Jennifer/Mean (mmHg): 112 (QS system process) : 57 (QS system process) : 77 (QS system process) Pulse: 98 (QS system process) Respirations: 18 (Estela Broman, RN) Datetime: 09/15/2016 16:18 NBP Sys/Jennifer/Mean (mmHg): 116 (QS system process) : 56 (QS system process) : 74 (QS system process) Pulse: 90 (QS system process) Respirations: 18 (Estela Broman, RN) Datetime: 09/15/2016 15:48 NBP Sys/Jennifer/Mean (mmHg): 115 (QS system process) : 59 (QS system process) : 81 (QS system process) Pulse: 88 (QS system process) Respirations: 16 (Renita Bellavance, RNC) Datetime: 09/15/2016 15:33 NBP Sys/Jennifer/Mean (mmHg): 123 (QS system process) : 56 (QS system process) : 81 (QS system process) Pulse: 73 (QS system process) Respirations: 16 (Renita Bellavance, RNC) Datetime: 09/15/2016 15:00 Stage of : Recovery (Renita Bellavance, RNC) Pain Assessment Comments: patient tolerating well Repair in progress (Renita Bellavance, RNC) Datetime: 09/15/2016 14:45 Monitor Mode: External (Renita Bellavance, RNC) Frequency (min): 2-3 (Renita Bellavance, RNC) Quality: Moderate to Strong (Renita Bellavance, RNC) Duration (sec): 50-70 (Renita Bellavance, RNC) Resting Tone (Palpate): Relaxed (Renita Bellavance, RNC) Monitor Mode: External US (Renita Bellavance, RNC) FHR Baseline Rate : 125 (Renita Bellavance, RNC) Variability: Moderate 6-25 bpm (Renita Bellavance, RNC) Accelerations: 10X10 (Renita Bellavance, RNC) Decelerations: Variable (Renita Bellavance, RNC) IV/Blood Work: IV Infusing per Order (Renita Bellavance, RNC) Patient Position/Activity: Semi-Fowlers (Renita Bellavance, RNC) Datetime: 09/15/2016 14:33 Pushing Position: Pushing with Contractions (Renita Bellavance, RNC) Datetime: 09/15/2016 14:30 Monitor Mode: External (Renita Bellavance, RNC) Frequency (min): 2-3 (Renita Bellavance, RNC) Quality: Moderate to Strong (Renita Bellavance, RNC) Duration (sec): 50-70 (Renita Bellavance, RNC) Resting Tone (Palpate): Relaxed (Renita Bellavance, RNC) Monitor Mode: External US (Renita Bellavance, RNC) FHR Baseline Rate : 135 (Renita Bellavance, RNC) Variability: Moderate 6-25 bpm (Renita Bellavance, RNC) Accelerations: 15X15 (Renita Bellavance, RNC) Decelerations: Early (Renita Bellavance, RNC) Pain Type: Pressure (Renita Bellavance, RNC) IV/Blood Work: IV Infusing per Order (Renita Bellavance, RNC) Patient Position/Activity: Semi-Fowlers (Renita Bellavance, RNC) LaborFlag: OB Triage (QS system process) Datetime: 09/15/2016 14:28 Stage 2 Comments: pushing (Renita Bellavance, RNC) Datetime: 09/15/2016 14:15 Monitor Mode: External (Renita Bellavance, RNC) Frequency (min): 2-4 (Renita Bellavance, RNC) Quality: Moderate to Strong (Renita Bellavance, RNC) Duration (sec): 70-90 (Renita Bellavance, RNC) Resting Tone (Palpate): Relaxed (Renita Bellavance, RNC) Monitor Mode: External US (Renita Bellavance, RNC) FHR Baseline Rate : 130 (Renita Bellavance, RNC) Variability: Moderate 6-25 bpm (Renita Bellavance, RNC) Accelerations: 15X15 (Renita Bellavance, RNC) Decelerations: None (Renita Bellavance, RNC) Patient Position/Activity: High Fowlers (Renita Bellavance, RNC) I/O Interventions: Clear Liquids Given (Renita Bellavance, RNC) Datetime: 09/15/2016 14:14 Level of Consciousness: Fully Conscious (Renita Bellavance, RNC) DTR's/Clonus: DTRs 2+; No Clonus (Renita Bellavance, RNC) Headache: Denies (Renita Bellavance, RNC) Breath Sounds, Left: Clear and Equal (Renita Bellavance, RNC) Breath Sounds, Right: Clear and Equal (Renita Bellavance, RNC) Nausea/Vomiting: Denies (Renita Bellavance, RNC) RUQ Epigastric Pain: Denies (Renita Bellavance, RNC) Datetime: 09/15/2016 14:10 Monitor Mode: External (Renita Bellavance, RNC) Frequency (min): 2-3 (Renita Bellavance, RNC) Quality: Moderate to Strong (Renita Bellavance, RNC) Duration (sec): 50-70 (Renita Bellavance, RNC) Duration Criteria: Less than Two 120 Second Contractions (Renita Bellavance, RNC) Pattern: Normal: <= 5 Contractions in 10 Minutes (Renita Bellavance, RNC) Resting Tone (Palpate): Relaxed (Renita Bellavance, RNC) Monitor Mode: External US (Renita Bellavance, RNC) FHR Baseline Rate : 130 (Renita Bellavance, RNC) Variability: Moderate 6-25 bpm (Renita Bellavance, RNC) Accelerations: 15X15 (Renita Bellavance, RNC) Decelerations: Variable (Renita Bellavance, RNC) Antibiotics: Start Antibiotics; Penicillin IV (Units) @ 5 million units ivpb (Renita Bellavance, RNC) IV/Blood Work: IV Infusing per Order (Renita Bellavance, RNC) Patient Position/Activity: High Fowlers (Renita Bellavance, RNC) Comfort Measures: Breathing/Relaxation (Renita Bellavance, RNC) Datetime: 09/15/2016 14:01 NBP Sys/Jennifer/Mean (mmHg): 136 (QS system process) : 76 (QS system process) : 101 (QS system process) Pulse: 53 (QS system process) Respirations: 16 (Renita Bellavance, RNC) Temperature (F): 98.2 (Renita Bellavance, RNC) Temperature (C): 36.8 (QS system process) Temperature Route: Oral (Renita Bellavance, RNC) Monitor Mode: External (Renita Bellavance, RNC) Monitor Interventions for UA: [place] Adjusted (Renita Bellavance, RNC) Frequency (min): monitor adjusted (Renita Bellavance, RNC) Quality: Moderate to Strong (Renita Bellavance, RNC) Resting Tone (Palpate): Relaxed (Renita Bellavance, RNC) Monitor Mode: External US (Renita Bellavance, RNC) Monitor Interventions for FHR: Ultrasound Adjusted (Renita Bellavance, RNC) FHR Baseline Rate : 130 (Renita Bellavance, RNC) FHR Baseline Changes: No Baseline Change (Renita Bellavance, RNC) Variability: Moderate 6-25 bpm (Renita Bellavance, RNC) Accelerations: 15X15 (Renita Bellavance, RNC) Decelerations: None (Renita Bellavance, RNC) Pain Assessment Comments: feeling pressure with contractions Denies pain management (Renita Bellavance, RNC) IV/Blood Work: IV Started; IV Bolus Started; New IV Bag Hung (Renita Bellavance, RNC) LaborFlag: OB Triage (QS system process)
[2016-09-15] MEDS: IBUPROFEN 800 MG TABLET PO SCH (21:30)
[2016-09-16] MEDS: ACETAMINOPHEN WITH CODEINE #3 TABLET PO PRN ×3 (03:07→21:22)
[2016-09-16 03:33] LABS: APPEARANCE,URINE CLEAR; BILIRUBIN,URINE NEGATIVE (NEGATIVE); GLUCOSE, URINE 50 mg/dL (NEGATIVE); KETONES,URINE NEGATIVE (NEGATIVE); LEUKOCYTE ESTERASE,URINE MODERATE (NEGATIVE); NITRITE,URINE NEGATIVE (NEGATIVE); PROTEIN,URINE NEGATIVE (NEGATIVE); URINE SPECIFIC GRAVITY 1.009; UROBILINOGEN,URINE NEGATIVE mg/dL (<2.0)
[2016-09-16 03:49] LABS: URINE BARBITURATES SCREEN NEGATIVE; URINE METHADONE SCREEN NEGATIVE; URINE PHENCYCLIDINE SCREEN NEGATIVE
[2016-09-16 03:51] LABS: URINE OPIATES LOW UNCONFIRMED POSITIVE
--- NOTE | 2016-09-16 06:01 | L&D Current Admission ---
Current Admit Datetime Report Generated by CPN: 09/16/2016 06:00 ADMISSION INFORMATION Current Admit Date/Time: 09/15/2016 14:12 (09/15/2016 14:12:MILIND Sandoval) Reason for Admission: Onset of Labor (09/15/2016 14:12:MILIND Sandoval) Chief Complaint: Contractions (09/15/2016 14:12:MILIND Sandoval) EGA per Dates: 39.2 (09/15/2016 14:12:QS system process) Method of Arrival: Wheelchair (09/15/2016 14:12:MILIND Sandoval) Admitted From: Home (09/15/2016 14:12:MILIND Sandoval) Reason for Induction: Not Applicable (09/15/2016 14:12:MILIND Sandoval) Records Available: Yes (09/15/2016 14:12:MILIND Sandoval) General Admission Information: Reviewed (09/15/2016 14:12:MILIND Sandoval) General Admission Reviewed By: Miri VAZ (09/15/2016 14:12:MILIND Sandoval) BELONGINGS/ADVANCED DIRECTIVES Valuables/Personal Effects: None (09/15/2016 14:12:MILIND Sandoval) Disposition of Belongings: Kept with Patient (09/15/2016 14:12:MILIND Sandoval) Advance Direct for Healthcare: No, and Wants No Information (09/15/2016 14:12:MILIND Sandoval) Durable Power of Hand Finisher: No (09/15/2016 14:12:MILIND Sandoval) Living Will: No (09/15/2016 14:12:MILIND Sandoval) Organ Donor: No (09/15/2016 14:12:MILIND Sandoval) Pt Rights Information Given: Yes (09/15/2016 14:12:MILIND Sandoval) Pt Understands Pt Rights: Yes (09/15/2016 14:12:MILIND Sandoval) LEARNING ASSESSMENT Knowledge Level: Understands L_D Process; Understands Care Activities; Had Pre-Hospital Education; Understands Diagnosis (09/15/2016 14:12:MILIND Sandoval) Barriers to Learning: None (09/15/2016 14:12:MILIND Sandoval) Learning Readiness: Motivated (09/15/2016 14:12:MILIND Sandoval) Learns Best By: 1 to 1 Instruction; Reading; Videos; Group Discussion; Demonstration (09/15/2016 14:12:MILIND Sandoval) Learning Needs: Labor and Delivery Process; Pain Management; Symptoms to Report; Treatment Plan; Medication; Diagnosis; Nutrition; Equipment; Infant Care; Community Resources (09/15/2016 14:12:MILIND Sandoval) DOMESTIC VIOLANCE SCREENING Dom Viol Threatened/Hurt: No (09/15/2016 14:12:MILIND Sandoval) Hx of Abuse/Neglect past 2yrs: No (09/15/2016 14:12:MILIND Sandoval) Feel Unsafe Going Home: No (09/15/2016 14:12:MILIND Sandoval) Addt'l Observ Indicating Abuse: No (09/15/2016 14:12:MILIND Sandoval) Reason Unable to Complete Screen: N/A, Screen Completed (09/15/2016 14:12:MILIND Sandoval) Considered Personal Harm/Suicide: No (09/15/2016 14:12:IMLIND Sandoval) NUTRITIONAL/FUNCTIONAL SCREENING Problem with Appetite >5 Days: No (09/15/2016 14:12:MILIND Sandoval) Chew/Swallow Difficulties: No (09/15/2016 14:12:MILIND Sandoval) Inappropriate Wt Gain/Loss: No (09/15/2016 14:12:MILIND Sandoval) Presence Skin Breakdown/Ulcer: No (09/15/2016 14:12:MILIND Sandoval) Special Diet: No (09/15/2016 14:12:MILIND Sandoval) Pt Requests Software Tools Developer Visit: No (09/15/2016 14:12:MILIND Sandoval) Hx of Any of the Following?: N/A (09/15/2016 14:12:MILIND Sandoval) New Diagnosis of: N/A (09/15/2016 14:12:MILIND Sandoval) Requires Assist w/Ambulation: No (09/15/2016 14:12:MILIND Sandoval) Uses Assist Device to Ambulate: No (09/15/2016 14:12:MILIND Sandoval) Pt Requires Help w/ADL's: No (09/15/2016 14:12:MILIND Sandoval)
--- NOTE | 2016-09-16 06:01 | L&D General Admission ---
General Admit Datetime Report Generated by CPN: 09/16/2016 06:00 INFORMATION Patient Age: 26 (08/17/2016 15:28:QS system process) EDC: 09/20/2016 00:00 (08/17/2016 15:46:Kinga Palomino RN) : 1 (08/17/2016 15:46:Kinga Palomino RN) Para: 0 (08/17/2016 16:46:Kinga Palomino RN) Term: 0 (08/17/2016 15:46:Kinga Palomino RN) : 0 (08/17/2016 15:46:Kinga Palomino RN) Spontaneous Abortions: 0 (08/17/2016 15:46:Kinga Palomino RN) Induced Abortions: 0 (08/17/2016 15:46:Kinga Paolmino RN) Livin (08/17/2016 15:46:Kinga Palomino RN) Cesareans: 0 (08/17/2016 15:46:Kinga Palomino RN) VBACs: 0 (08/17/2016 15:46:Kinga Palomino RN) Ectopic: 0 (08/17/2016 15:46:Kinga Palomino RN) Multiple Births: 0 (08/17/2016 15:46:Kinga Palomino RN) Baby, Number in Womb: 1 (08/17/2016 16:46:Kinga Palomino RN) CARE Primary Winding Rack Operator: [employer] [facility] (08/17/2016 15:46:Kinga Palomino RN) Adequate Care: Yes (08/17/2016 15:46:Kinga Palomino RN) Height (in): 61 (09/15/2016 17:38:QS system process) ALLERGIES Medication Allergy: No (08/17/2016 15:46:Kinga Palomino RN) Medication Allergies: No Known Allergies (07/11/2016) (08/17/2016 15:28:QS system process) Latex Allergy: No Latex Allergies (08/17/2016 15:46:Kinga Palomino RN) COMMUNICATION Primary Language: Sammarinese (08/17/2016 15:46:Kinga Palomino RN) Medical Tx Preferred Language: Sammarinese (08/17/2016 15:46:Kinga Palomino RN) Communication Barrier(s): None (08/17/2016 15:46:Kinga Palomino RN) DEMOGRAPHICS Address: [address] [place] [address], [address] [place] [address] (09/08/2016 15:08:QS system process) Zipcode: [address] (08/17/2016 15:28:QS system process) Home (08/17/2016 15:28:QS system process) Work (09/08/2016 15:08:QS system process) N: [phone] (08/17/2016 15:28:QS system process) Next of Kin Name: YONNY ELLIS (08/17/2016 15:28:QS system process) Next of Kin (08/17/2016 15:28:QS system process) Next of Kin Relationship: OR (08/17/2016 15:28:QS system process) Date of : 1990 (08/17/2016 15:28:QS system process) Marital Status: Single (08/17/2016 15:28:QS system process) Sex: Female (08/17/2016 15:28:QS system process) Race: (08/17/2016 15:28:QS system process) Ethnicity: Non- or (08/17/2016 15:28:QS system process) Rastafari: None (08/17/2016 15:28:QS system process) DRUG AND ALCOHOL USE Alcohol: No (08/17/2016 15:46:Kinga Palomino RN) Cigarettes: Former Smoker. [id number] (08/17/2016 15:46:Kinga Palomino RN) Marijuana: No (08/17/2016 15:46:Kinga Palomino RN) Cocaine: No (08/17/2016 15:46:Kinga Palomino RN) Other Illicit Drugs: No (08/17/2016 15:46:Kinga Palomino RN) VACCINE HISTORY Influenza Vaccine: Yes (08/17/2016 15:46:Nicole Whitfield RN) Pneumococcal Vaccine: No (08/17/2016 15:46:Nicole Whitfield RN) Tetanus Vaccine: Yes (08/17/2016 15:46:Kinga Palomino RN) Tdap Vaccine: Yes (08/17/2016 15:46:Kinga Palomino RN) Hepatitis B Vaccine: Yes (08/17/2016 15:46:Nicole Whitfield RN) Cotton Presser: STELLA (08/17/2016 15:46:Nicole Whitfield RN) Feeding Preference: Breast (08/17/2016 15:46:Nicole Whitfield RN) Benefit of Breast Feed Discussed: Yes (08/17/2016 15:46:Brisa Garrido RN) Tubal Ligation: No (08/17/2016 15:46:Nicole Whitfield RN) Tubal Authorization Signed: N/A (08/17/2016 15:46:Nicole Whitfield RN) Consent: N/A (08/17/2016 15:46:Nicole Whitfield RN) Consent Signed: N/A (08/17/2016 15:46:Nicole Whitfield RN) Other Pain Management Plans: unsure (08/17/2016 15:46:Nicole Whitfield RN) Other Labor and Delivery Plans: skin to skin (08/17/2016 15:46:Nicole Whitfield RN) Cultural/Spritual Practice: No (08/17/2016 15:46:Nicole Whitfield RN) Spir/Cult Dietary Needs: No (08/17/2016 15:46:Nicole Whitfield RN) LIVING SITUATION/DISCHARGE PLAN Living Arrangements: Apartment (08/17/2016 15:46:Nicole Whitfield RN) Adequate Access to:: Electric; Heat; Refrigeration; Plumbing/Running water; Phone; Transportation (08/17/2016 15:46:Nicole Whitfield RN) WIC Program: Yes (08/17/2016 15:46:Nicole Whitfield RN) Discharge Shredding Machine Operator Person: Anny Maiori/girlfriend (08/17/2016 15:46:Nicole Whitfield RN) Person to Help after Discharge: Anny (08/17/2016 15:46:Nicole Whitfield RN) Currently Using Commun Resources: Yes (08/17/2016 15:46:Nicole Whitfield RN) Specify Current Resource Used: Medicaid (08/17/2016 15:46:Nicole Whitfield RN) Outside Agency/Quality Rn: No (08/17/2016 15:46:Nicole Whitfield RN) Car Seat for Discharge: Yes (08/17/2016 15:46:Nicole Whitfield RN) Adoption Requested: No (08/17/2016 15:46:Nicole Whitfield RN) Pt Contact w/infant Post : N/A (08/17/2016 15:46:Nicole Whiftield RN) LABS Blood Type: A Positive (08/17/2016 15:46:Nicole Whitfield RN) Hemoglobin: 9.1 L (09/15/2016 16:00:QS system process) Hematocrit: 28.3 L (09/15/2016 16:00:QS system process) MCV: 91 (09/15/2016 16:00:QS system process) Group Beta Strep: positive (08/17/2016 15:46:Nicole Whitfield RN) Gonorrhea: Negative (08/17/2016 15:46:Nicole Whitfield RN) Chlamydia: Negative (08/17/2016 15:46:Nicole Whitfield RN) RPR/VDRL: Nonreactive (08/17/2016 15:46:Nicole Whitfield RN) HIV Exposure Test: Negative (08/17/2016 15:46:Nicole Whitfield RN) Hepatitis B: Negative (08/17/2016 15:46:Nicole Whitfield RN) Rubella: Non-Immune (08/17/2016 15:46:Nicole Whitfield RN) Varicella: Non Susceptible (08/17/2016 15:46:Nicole Whitfield RN) OB/PREVIOUS HISTORY History of Previous : No (08/17/2016 15:46:Kinga Palomino RN) History of Gestational Diabetes: No (08/17/2016 15:46:Kinga Palomino RN) History of PIH: No (08/17/2016 15:46:Kinga Palomino RN) History of Incompetent Cervix: No (08/17/2016 15:46:Kinga Palomino RN) History of Placenta Previa/Abrup: No (08/17/2016 15:46:Kinga Palomino RN) History of Macrosomia: No (08/17/2016 15:46:Kinga Palomino RN) History of IUGR: No (08/17/2016 15:46:Kinga Palomino RN) History of Hemorrhage: No (08/17/2016 15:46:Kinga Palomino RN) History of Loss/Stillborn: No (08/17/2016 15:46:Kinga Palomino RN) History of : No (08/17/2016 15:46:Kinga Palomino RN) History of D (Rh) Sensitization: No (08/17/2016 15:46:Kinga Palomino RN) History Recurrent Loss/Stillborn: No (08/17/2016 15:46:Kinga Palomino RN) History Depression/PP Depression: No (08/17/2016 15:46:Kinga Palomino RN) History of Uterine Anomaly/MARIS: No (08/17/2016 15:46:Kinga Palomino RN) History of Infertility: No (08/17/2016 15:46:Kinga Palomino RN) History of ART Treatment: No (08/17/2016 15:46:Kinga Palomino RN) History of MARIS: No (08/17/2016 15:46:Kinga Palomino RN) Comments Obstetrical History: G1: current (08/17/2016 15:46:Nicole Whitfield RN) MEDICAL HISTORY Med Hx Diabetes: No (08/17/2016 15:46:Kinga Palomino RN) Med Hx Hypertension: No (08/17/2016 15:46:Kinga Palomino RN) Med Hx Heart Disease: No (08/17/2016 15:46:Kinga Palomino RN) Med Hx Autoimmune Disorder: No (08/17/2016 15:46:Kinga Palomino RN) Med Hx Kidney Disease/UTI: No (08/17/2016 15:46:Kinga Palomino RN) Med Hx Neurologic/Epilepsy: No (08/17/2016 15:46:Kinga Palomino RN) Med Hx Psychiatric Disorders: No (08/17/2016 15:46:Kinga Palomino RN) Med Hx Hepatitis/Liver Disease: No (08/17/2016 15:46:Kinga Palomino RN) Med Hx Varicosities/Phlebitis: No (08/17/2016 15:46:Kinga Palomino RN) Med Hx Thyroid Dysfunction: No (08/17/2016 15:46:Kinga Palomino RN) Med Hx Trauma/Violence: No (08/17/2016 15:46:Kinga Palomino RN) Med Hx Blood Transfusion: No (08/17/2016 15:46:Kinga Palomino RN) Med Hx Pulmonary (Asthma,TB): No (08/17/2016 15:46:Kinga Palomino RN) Med Hx Breast: No (08/17/2016 15:46:Kinga Palomino RN) Med Hx CHANNEL MARKETING MANAGER Surgery: No (08/17/2016 15:46:Kinga Palomino RN) Med Hx Hospitalization/Surgery: No (08/17/2016 15:46:Kinga Palomino RN) Med Hx Anesthetic Complications: No (08/17/2016 15:46:Kinga Palomino RN) Med Hx Abnormal Pap Smear: No (08/17/2016 15:46:Kinga Palomino RN) Other Medical Diseases: No (08/17/2016 15:46:Kinga Palomino RN) Med Hx Significant Family Hx: No (08/17/2016 15:46:Kinga Palomino RN) INFECTIOUS HISTORY Inf Hx Gonorrhea: No (08/17/2016 15:46:Kinga Palomino RN) Inf Hx Chlamydia: No (08/17/2016 15:46:Kinga Palomino RN) Inf Hx Syphilis: No (08/17/2016 15:46:Kinga Palomino RN) Inf Hx HIV/AIDS: No (08/17/2016 15:46:Kinga Palomino RN) Inf Hx Human Papilloma Virus: No (08/17/2016 15:46:Kinga Palomino RN) Inf Hx Pt/Partner Genital Herpes: No (08/17/2016 15:46:Kinga Palomino RN) Inf Hx Tuberculosis/Exposure: No (08/17/2016 15:46:Kinga Palomino RN) Inf Hx Hepatitis B,C: No (08/17/2016 15:46:Kinga Palomino RN) Inf Hx Rash or Viral Illness: No (08/17/2016 15:46:Kinga Palomino RN) GENETIC HISTORY Gen Hx Age >=35 at MARYA: No (08/17/2016 15:46:Kinga Palomino RN) Gen Hx Thalassemia: No (08/17/2016 15:46:Kinga Palomino RN) Gen Hx Congenital Heart Defect: No (08/17/2016 15:46:Kinga Palomino RN) Gen Hx Neural Tube Defect: No (08/17/2016 15:46:Kinga Palomino RN) Gen Hx Down's Syndrome: No (08/17/2016 15:46:Kinga Palomino RN) Gen Hx Jose Raul-Sachs: No (08/17/2016 15:46:Kinga Palomino RN) Gen Hx Sindhu: No (08/17/2016 15:46:Kinga Palomino RN) Gen Hx Familial Dysautonomia: No (08/17/2016 15:46:Kinga Palomino RN) Gen Hx Sickle Cell Disease/Trait: No (08/17/2016 15:46:Kinga Palomino RN) Gen Hx Hemophilia/Blood Disorder: No (08/17/2016 15:46:Kinga Palomino RN) Gen Hx Muscular Dystrophy: No (08/17/2016 15:46:Kinga Palomino RN) Gen Hx Cystic Fibrosis: No (08/17/2016 15:46:Kinga Palomino RN) Gen Hx [place] Chorea: No (08/17/2016 15:46:Kinga Palomino RN) Gen Hx Mental Retardation/Autism: No (08/17/2016 15:46:Kinga Palomino RN) Gen Hx Tested for Fragile X: No (08/17/2016 15:46:Kinga Palomino RN) Gen Hx Other Inher/Chromosomal: No (08/17/2016 15:46:Kinga Palomino RN) Gen Hx Maternal Metabolic DO: No (08/17/2016 15:46:Kinga Palomino RN) Gen Hx Pt Father or FOB Defect: No (08/17/2016 15:46:Kinga Palomino RN) Gen Hx Other Genetic History: No (08/17/2016 15:46:Kinga Palomino RN) Gen Hx Drugs/Meds since LMP: No (08/17/2016 15:46:Kinga Palomino RN)
--- NOTE | 2016-09-16 06:16 | L&D Care Plan ---
LD CARE PLANS Datetime Report Generated by CPBecky: 09/16/2016 06:15 Datetime: 09/15/2016 13:56 State: Actual (MILIND Crisostomo) Related To: Labor and Delivery Process; Treatment and Procedures; Post (MILIND Crisostomo) Goal(s): Patients Pain will be Assessed and Managed; Patient will Verbalize Adequate Relief of Pain or the Ability to [place] with Current Pain (MILIND Crisostomo) Interventions: Assess Pain Severity on Scale of 0 (None) to 5 (Severe); Assess Type, Location and Intensity of Pain Each Time Client Reports Discomfort and Notify Provider if Unusal Pain Develops; Encourage Proper Breathing and Relaxation Techniques; Offer Alternatives Such as Repositioning, Calm Environment, Massages, Diversional Activities, Ice Pack, Splinting, and Ambulation; Administer Analgesics as Ordered; Assist with Epidural Placement as Appropriate; Evaluate Therapeutic Effectiveness of Medication and Treatments (MILIND Crisostomo) Outcome: Patient will Report Absence or Relief of Pain Consistent with Established Pain Goal (MILIND Crisostomo) Status: Ongoing (MILIND Crisostomo) Outcome: Patient will have a Decrease in Signs and Symptoms of Discomfort (Mandy Hall, RNC) Status: Ongoing (Mandy Hall, RNC) Outcome: Pain will be Controlled During Procedures (Mandy Hall, RN) Status: Ongoing (Mandy Hall, RNC) State: Risk For (Mandy Hall, RNC) Related To: Labor and Delivery Process; Fear of Unknown; Situational Crisis; Medical Interventions; Significant Life Event (Mandy Hall, RN) Goal(s): Patient will have Decreased Anxiety and be able to Function at Acceptable Levels (Mandy Hall, RNC) Interventions: Assess Verbal and Nonverbal Behavioral Indicators of Anxiety; Assist Patient to Identify and Verbalize Symptoms of Anxiety; Identify and Demonstrate Techniques to Control Anxiety; Assist Patient with Coping Mechanisms to Manage Anxiety; Provide Theraputic Touch for the Patient; Explain to Patient, Using a Calm Reassuring Approach and Nonmedical Terms, All Activities, Procedures, and Concerns; Instruct Patient and Family about Post Discharge Care, Limitations, Symptoms to Report and Resources Available (Mandy Hall, RNC) Outcome: Patient will Identify, Verbalize and Demonstrate Techniques to Control Anxiety (Mandy Hall, RN) Status: Ongoing (Mandy Hall, RN) Outcome: Patient's Posture, Facial Expressions, Gestures and Activity Level will Reflect Decreased Anxiety (Mandy Hall, RNC) Status: Ongoing (Mandy Hall, RN) Outcome: Patient will Verbalize a Sense of Control and/or Acceptance of the Situation (Mandy Hall, RNC) Status: Ongoing (Mandy Hall, RN) Outcome: Patient will Identify and Utilize Support Person (Mandy Hall, RN) Status: Ongoing (Mandy Hall, RN) State: Actual (Mandy Hall, RN) Related To: Labor and Delivery Process; Treatment and Procedures; Feeding and Infant Care; Community Resources and Available Support Mechanisms (Mandy Hall, RN) Goal(s): Patient will Accurately Verbalize Understanding of Plan of Care and Treatment; Patient and Family will Accurately Verbalize Understanding of the Disease Process (Mandy Hall, RNC) Interventions: Assess Motivation and Willingness of Patient/Family to Learn; Assess Preferred Learning Mode: One to One Instruction, Reading, Videos, Group Discussion or Demonstration; Assess Barriers to Learning: Pain, Emotional State, Language Barrier, Cognitive Impairment, Visual or Hearing Deficits; Assess Patient and Family Knowledge of Disease Process, Medications and Treatment; Discuss Therapy and/or Treatment Options, Describe Rationale Behind Management, Therapy and Treatment Recommendations; Instruct Patient and Family on Signs and Symptoms to Report; Instruct Patient and Family on Medication Effects and Side Effects; Provide Appropriate and Timely Education Using Multiple Techniques; Provide Patient and Family with Support Group Information and Resources; Give Clear and Thorough Explanations and Demonstrations (Mandy Hall, PAULAC) Outcome: Patient and Family will Verbalize Understanding of Condition, Treatment and Signs and Symptoms to Report (Mandy Hall, RNC) Outcome: Patient will Identify Perceived Learning Needs and Express Motivation to Learn (Mandy Hall, RNC) Outcome: Patient will Verbalize Understanding of Desired Content, and/or Performs Desired Skill Prior to Discharge (Mandy Hall, RNC) State: Actual (Mandy Hall, RNC) Related To: Invasive Procedures (Mandy Hall, RNC) Goal(s): The Patient will be Free of Infection, Vital Signs Stable and Lab Work within Normal Parameters (Mandy Hall, RNC) Interventions: Instruct and Reinforce Proper Handwashing, Hygiene, and Care Techniques to Patient and Family; Monitor Vital Signs; Monitor Patient for the Following Signs of Infection: Fever, Abdominal Tenderness, Unusual Discharge; Monitor Aminiotic Fluid, Urine and Lochia for Color and Odor; Observe Wounds, Incisions and Invasive Line Sites for Redness, Drainage and Edema; Assess IV Sites per Hospital Policy; Monitor Lab and Test Results and Notify Provider of Abnormal Findings; Assess Nutritional Status and Promote Good Nutrition (Mandy Hall, RNC) Outcome: Patient will Remain Free of Infection (Mandy Hall, RNC) Status: Ongoing (Mandy Hall, RN) Outcome: Infection will be Recognized Early to Allow for Prompt Treatment (Mandy Hall, RNC) Status: Ongoing (Mandy Hall, RNC) Outcome: Patient will have Vital Signs Within Expected Range (Mandy Hall, RNC) Status: Ongoing (Mandy Hall, RNC) State: Risk For (Mandy Hall, RNC) Goal(s): Patient will Achieve and Maintain a Balanced Fluid Volume Status; Hemodynamically Stable (Manyd Hall, RNC) Interventions: Monitor Vital Signs; Auscultate Breath Sounds; Monitor Patient for Skin Turgor, Mucous Membranes, Dry Skin, Weakness, Headaches and Confusion; Provide Oral Fluids as Ordered; Initiate and Maintain Intravenous Fluids as Ordered; Monitor Intake and Output as Indicated Per Patient Status; Accurately Measure Blood Loss; Monitor Lab and Test Results as Obtained and Notify Provider of Abnormal Findings; Monitor Patient's Weight (Mandy Hall, RNC) Outcome: Patient will have Clear Lung Sounds (Mandy Hall, RNC) Status: Ongoing (Mandy Hall, RNC) Outcome: Patient will have Vital Signs within Expected Range (Mandy Hall, RNC) Status: Ongoing (Mandy Hall, RNC) Outcome: Urine Output will be within Expected Range (Mandy Hall, RNC) Status: Ongoing (Mandy Hall, RNC) Outcome: Patient will have Minimal Generalized or Upper Extremity Edema (Mandy Hall, RNC) Status: Ongoing (Mandy Hall, RNC) State: Risk For (Mandy Hall, RNC) Related To: Labor and Delivery Process (Mandy Hall, RN) Goal(s): Patient will Remain Free from Injury (Mandy Hall, RNC) Interventions: Monitoring as per Hospital Protocol; Assess Neurological Status; Perform Risk Assessment of Patients with Induction and ; Perform Fall Risk Assessment and Prevention per Hospital Protocol; Perform DVT Risk Assessment and Prophylaxis per Hospital Protocol; Ensure that Oxygen, Suction, and Resuscitation Medications and Equipment are Readily Available; Confirm Patient ID Prior to Procedure(s) and Medication Administration per Hospital Policy (Mandy Hall, RN) Outcome: Successful Fall Risk Prevention (Mandy Hall, RNC) Status: Ongoing (Mandy Hall, RNC) Outcome: Patient will Deliver Infant without Adverse [place] (Mandy Hall, RNC) Status: Ongoing (Mandy Hall, RNC) Status: Ongoing (Mandy Hall, RN) State: Risk For (Mandy Hall, RN) Related To: Vaginal Delivery; Invasive Procedures (Mandy Hall, RN) Goal(s): Patient will Maintain Optimal Skin Integrity, Free of Breakdown, Injury or Infection (Mandy Hall, RNC) Interventions: Complete Screening for Pressure Ulcer Risk and Initiate Protocol per Hospital Policy; Monitor Site of Skin Impairment for Color Changes, Redness, Swelling, Warmth, Pain or Other Signs of Infection; Encourage and Assist with Position Changes; Monitor Patient's Mobility Status; Provide Adequate Nutrition and Fluids; Teach Patient Appropriate Hygienic Care; Teach Patient/Family Skin Care Management (Mandy Hall, RNC) Outcome: Patient will not have Evidence of Injury Such as Skin Breakdown, Scrapes, Cuts, or Bruising (Mandy Hall, RNC) Status: Ongoing (MILIND Crisostomo) Outcome: Patient will Report Any Altered Sensation or Pain at Site of Skin Impairment (MILIND Crisostomo) Status: Ongoing (MILIND Crisostomo) Outcome: Patients Incisions and Wounds will be without Signs or Symptoms of Infection (Mandy Hall, MILIND) Status: Ongoing (Mandy Hall, MILIND) Outcome: Patient will Demonstrate Understanding of Plan to Heal Skin and Prevent Reinjury and Verbalize Risk Factors (MILIND Crisostomo) Status: Ongoing (MILIND Crisostomo) State: Actual (MILIND Crisostomo) Related To: (MILIND Crisostomo) Goal(s): Patient will have an Intake of Nutrients Sufficient to Meet Metabolic Needs (MILIND Crisostomo) Interventions: Nutritional Screening and Assessment per Hospital Policy; Consult Flyer Repairer for Further Assessment and Recommendations Regarding Food Preferences and Nutritional Support; Allow Patient to Plan and Order Diet when Possible; Monitor Laboratory Values That Indicate Nutritional Well-being; Consult Aerial Hurricane Hunter for Nutritional Support Regarding Requirements; Document Actual Weight Initially and Weekly (Do Not Estimate); Encourage Patient Participation in Maintaining a Food Log as Indicated; Educate Patient on the Importance of Maintaining an Adequate Caloric Intake (MILIND Crisostomo) Outcome: Patient will Receive Adequate Calories and Fluid Volume to Meet Metabolic Needs (MILIND Crisostomo) Status: Ongoing (MILIND Crisostomo) Outcome: Patient will Select Foods or Meals that Support Adequate Nutrition (MILIND Crisostomo) Status: Ongoing (MILIND Crisostomo)
[2016-09-16] MEDS: IBUPROFEN 800 MG TABLET PO SCH ×3 (06:28→21:24)
--- NOTE | 2016-09-16 07:21 | Delivery Summary ---
Del Sum A-C Datetime Report Generated by CPN: 09/16/2016 07:20 ADMISSION DATA Chief Complaint: Uterine Contractions Indication for Induction: Not Applicable Admission Impression: Term, Intrauterine ; Active Labor; Ruptured Membranes Admit Provider Comments: Pt. sent from office dilated to 10cm. SROM on the way to hospital. Delivered shortly upon arrival. 26yo G1 now P1 Apos, Rubella Non Immune, GBS positive. First dose given upon admission into unit. DELIVERY PERSONNEL Delivery Doctor:: Marjan DC CNM Nurse Chemical Radiation Technician Certified:: Sowmya Dc CNM Labor and Delivery Nurse:: MILIND Sandoval Creping Machine Operator Helper/[employer] DIRECTOR: Tonya Bills CNA II MATERNAL INFORMATION Delivery Anesthesia: None Medications During Delivery: local for repair and Toradol 30 mg iv after delivery Medications After Delivery: Pitocin Bolus-Please Comment Estimated Blood Loss (ml): 200 Maternal Complications: None Provider Comments: Pt. admitted at c/c/+1 with rupture of membranes on the way to the unit-clear fluid. Pt. remained in control and pushed effectively on her own without much coaching. Baby delivered ALEXSANDER with a loose nuchal cord. Vigorous respiratory effort and cry at delivery. Baby placed on maternal abdomen, cord allowed to stop pulsating then clamped x2 and cut (3vc noted). Placenta delivered spontaneously intact. Vaginal and perineal inspection revealed lacerations as stated above. Pt. in room with baby skin to skin and . LABOR SUMMARY EDC: 09/20/2016 00:00 No. Babies in Womb: 1 Attempted: No Labor Anesthesia: None LABOR INFORMATION Reason for Induction: Not Applicable Onset of Labor: 09/15/2016 01:00 Complete Dilatation: 09/15/2016 14:10 Oxytocin: N/A Group B Beta Strep: positive Antibiotics # of Doses: 1 Antibiotics Time of Last Dose: 1410 Name of Antibiotic Given: PENICILLIN G Steroids Given: None Reason Steroids Not Administered: Not Applicable MEMBRANES Membranes Rupture Method: Spontaneous Rupture of Membranes: 09/15/2016 14:10 Length of Rupture (hr): 0.72 Amniotic Fluid Color: Clear Amniotic Fluid Amount: Small Amniotic Fluid Odor: Normal STAGES OF LABOR Stage 1 hr: 13 Stage 1 min: 10 Stage 2 hr: 0 Stage 2 min: 43 Stage 3 hr: 24 Stage 3 min: 4 Total Time in Labor hr: 37 Total Time in Labor min: 57 VAGINAL DELIVERY Episiotomy: None Laceration Extension: Second Degree Laceration Type: Vaginal Other Laceration: right labial Laceration Repair: Yes Laceration Repair Note: MLL noted and repaired in the usual fashion with 2-0 chromic and hemostasis achieved. A right labial laceration was also noted and repaired in the usual fashion. Sponge Count Correct: N/A Sharps Count Correct: N/A BABY A INFORMATION Infant Delivery Date/Time: 09/15/2016 14:53 Method of Delivery: Vaginal Born in Route : No : N/A Forceps: N/A Vacuum Extraction: N/A Shoulder Dystocia : No PRESENTATION/POSITION BABY A Presentation: Cephalic Cephalic Presentation: Vertex Vertex Position: Left Occipital Anterior Breech Presentation: N/A PLACENTA INFORMATION BABY A Placenta Delivery Time : 09/16/2016 14:57 Placenta Method of Delivery: Spontaneous Placenta Status: Delivered SCORES BABY A Heart Rate 1 min: >100 bpm Resp Effort 1 min: Good Cry Reflex Irritability 1 min: Cough or Sneeze or Pulls Away Muscle Tone 1 min: Active Motion Color 1 min: Body [place], Extremities Blue Resuscitation Effort 1 min: Tactile Stimulation SCORE 1 MIN: 9 Heart Rate 5 min: >100 bpm Resp Effort 5 min: Good Cry Reflex Irritability 5 min: Cough or Sneeze or Pulls Away Muscle Tone 5 min: Active Motion Color 5 min: Completely [place] SCORE 5 MIN: 10 INFORMATION BABY A Gestational Age at Delivery: 39.2 Gestational Status: Full Term- 39- 40.6 Weeks Outcome : Liveborn Infant Condition : Stable Sex: Female IDENTIFICATION BABY A Infant Verification Date/Time: 09/15/2016 15:07 ID Band Number: [id number] Mother's Name Verified: Yes RN Verifying : BL ROULUND, RN Additional Verifying Personnel: S CAMP, RNC WEIGHT/LENGTH BABY A Birthweight (gm): 2783 Infant Weight (lb): 6 Infant Weight (oz): 2 CORD INFORMATION BABY A No. Cord Vessels: 3 Nuchal Cord : Around Neck x1, Loose Cord Blood Taken: Yes-For Storage (Mom's Blood type +) Infant Suction: None ASSESSMENT BABY A Infant Complications: None Physical Findings at Delivery: Within Normal Limits Respirations: Appears Normal Skin to Skin: Yes Supervisor Water Softener Service/ALS Called : No Infant Care By: D Bellavance RNC Transferred To: Remains with Mother BABY B INFORMATION : N/A SIGNATURES Assignment: Maria L Nuñez MD Signature: with User ID: Cristopher : with User ID: Cristopher
[2016-09-16 08:13] LABS: MEAN CORPUSCULAR HEMOGLOBIN 28.8 pg (27.0-33.4); MEAN CORPUSCULAR HGB CONC 32.1 g/dL (32.0-36.0); MEAN CORPUSCULAR VOLUME 90 fl (80-97); RED BLOOD COUNT 2.45 10^6/uL (3.72-5.28); RED CELL DISTRIBUTION WIDTH 14.3 % (11.5-14.0); WHITE BLOOD COUNT 16.5 10^3/uL (4.0-10.5)
[2016-09-16] MEDS ORDERED: FERROUS SULFATE 325 MG TABLET PO SCH (10:00)
[2016-09-16] MEDS ORDERED: [UNRECOGNIZED DRUG - REMARK] PO SCH (10:00)
[2016-09-16] MEDS: PRENATAL VITAMIN W-O CA NO5/FE FUMARATE/FA CAPSULE PO SCH (10:31)
[2016-09-16] MEDS: SENNOSIDES/DOCUSATE 8.6-50 MG 1 EACH TABLET PO SCH (10:31)
[2016-09-16] MEDS: DOCUSATE SODIUM 100 MG CAPSULE PO SCH ×2 (10:31→17:23)
[2016-09-16] MEDS: FERROUS SULFATE 325 MG TABLET PO SCH ×2 (10:31→17:23)
--- NOTE | 2016-09-16 10:59 | PDOC PROGRESS REPORT ---
Subjective-OB Subjective: Post Delivery Day: 26 year old. Denies any needs at this time Doing well, family at BS, ambulating without dizziness, does not want blood as long as she is doing well, taking iron at home, Physical Exam (OB) Vital Signs: Temp Pulse Resp BP Pulse Ox 98.1 F 80 14 111/62 100 09/16/16 07:44 09/16/16 07:44 09/16/16 07:44 09/16/16 07:44 09/16/16 07:44 Intake & Output 09/15/16 09/16/16 09/17/16 06:59 06:59 06:59 Weight 78 kg - Lochia Lochia Amount: Scant < 10 ml Lochia Color: Rubra/Red - Abdomen Description: Tender, Soft Hernia Present: No Fundal Description: Firm, Midline Fundal Height: u/u - u/2 Objective-Diagnostic Laboratory: 09/16/16 07:26 09/15/16 09/15/16 09/16/16 16:00 16:00 03:05 WBC 15.8 H RBC 3.12 L Hgb 9.1 L Hct 28.3 L MCV 91 MCH 29.0 MCHC 32.0 RDW 14.2 H Plt Count 156 Seg Neutrophils % Not Reportable Lymphocytes % Not Reportable Monocytes % Not Reportable Eosinophils % Not Reportable Basophils % Not Reportable Absolute Neutrophils Not Reportable Absolute Lymphocytes Not Reportable Absolute Monocytes Not Reportable Absolute Eosinophils Not Reportable Absolute Basophils Not Reportable Urine Color YELLOW Urine Appearance CLEAR Urine pH 5.0 Ur Specific [place] 1.009 Urine Protein NEGATIVE Urine Glucose (UA) 50 H Urine Ketones NEGATIVE Urine Blood LARGE H Urine Nitrite NEGATIVE Ur Leukocyte Esterase MODERATE H Blood Type A POSITIVE Antibody Screen NEGATIVE 09/16/16 07:26 WBC 16.5 H RBC 2.45 L Hgb 7.0 L D Hct 22.0 L MCV 90 MCH 28.8 MCHC 32.1 RDW 14.3 H Plt Count 181 Seg Neutrophils % Lymphocytes % Monocytes % Eosinophils % Basophils % Absolute Neutrophils Absolute Lymphocytes Absolute Monocytes Absolute Eosinophils Absolute Basophils Urine Color Urine Appearance Urine pH Ur Specific [place] Urine Protein Urine Glucose (UA) Urine Ketones Urine Blood Urine Nitrite Ur Leukocyte Esterase Blood Type Antibody Screen Assessment and Plan(PN) - Assessment and Plan (1) GBS (group B Streptococcus carrier), +RV culture, currently Is this a current diagnosis for this admission?: Yes (2) Anemia Qualifiers: Anemia type: iron deficiency Is this a current diagnosis for this admission?: Yes (3) Normal vaginal delivery Is this a current diagnosis for this admission?: Yes - Time Spent with Patient Time with patient: Less than 15 minutes Medications reviewed and adjusted accordingly: Yes
[2016-09-17] MEDS: ACETAMINOPHEN WITH CODEINE #3 TABLET PO PRN (03:04)
[2016-09-17] MEDS: IBUPROFEN 800 MG TABLET PO SCH ×2 (06:07→13:47)
[2016-09-17 07:58] LABS: HEMATOCRIT 20.7 % (36.0-47.0); HGB HCT DIFFERENCE -0.3; MEAN CORPUSCULAR HEMOGLOBIN 29.6 pg (27.0-33.4); MEAN CORPUSCULAR HGB CONC 33.1 g/dL (32.0-36.0); MEAN CORPUSCULAR VOLUME 89 fl (80-97); RED BLOOD COUNT 2.31 10^6/uL (3.72-5.28); RED CELL DISTRIBUTION WIDTH 14.2 % (11.5-14.0); WHITE BLOOD COUNT 14.2 10^3/uL (4.0-10.5)
[2016-09-17 08:17] LABS: HEMOGLOBIN 6.8 g/dL (12.0-15.5)
[2016-09-17 08:56] VITALS: BP 117/55
[2016-09-17] MEDS: FERROUS SULFATE 325 MG TABLET PO SCH (10:08)
[2016-09-17] MEDS: PRENATAL VITAMIN W-O CA NO5/FE FUMARATE/FA CAPSULE PO SCH (10:08)
[2016-09-17] MEDS: DOCUSATE SODIUM 100 MG CAPSULE PO SCH (10:08)
[2016-09-17] MEDS: SENNOSIDES/DOCUSATE 8.6-50 MG 1 EACH TABLET PO SCH (10:08)
--- NOTE | 2016-09-17 13:05 | PDOC DISCHARGE SUMMARY ---
Final Diagnosis Discharge Date: 09/17/16 - Final Diagnosis (1) GBS (group B Streptococcus carrier), +RV culture, currently Is this a current diagnosis for this admission?: Yes (2) Normal vaginal delivery Is this a current diagnosis for this admission?: Yes Discharge Data - Discharge Medication Home Medications: Pnv with Ca,No.72/Iron,Carb/FA [ Plus Iron Tablet] 1 each PO DAILY #30 tablet 01/23/16 Ferrous Sulfate [Iron] 325 mg PO DAILY 09/15/16 Reason(s) for Admission: Onset of Labor Intrapartum Procedure(s): Spontaneous Vaginal Delivery Complication(s): Laceration-Vaginal Laceration-Degree: 2nd - Diagnosis Test Laboratory: Temp Pulse Resp BP Pulse Ox 98.2 F 94 16 117/55 L 94 09/17/16 09:43 09/17/16 09:43 09/17/16 09:43 09/17/16 09:43 09/17/16 09:43 09/15/16 09/16/16 09/16/16 16:00 03:05 07:26 RBC 3.12 L 2.45 L Hgb 9.1 L 7.0 L D Hct 28.3 L 22.0 L Urine Opiates Screen UNCONFIRMED POSITIVE 09/17/16 07:33 RBC 2.31 L Hgb 6.8 L Hct 20.7 L Urine Opiates Screen - Discharge information/Instructions Discharge Activity: Activity As Tolerated, No Lifting Over 10 Pounds, Pelvic Rest, No tub bath Discharge Diet: Regular Disposition: HOME, SELF-CARE Follow up with: [facility] in: 4
--- NOTE | 2016-09-17 13:27 | PDOC PROGRESS REPORT ---
Subjective-OB Subjective: Post Delivery Day: 26 year old. Denies any needs at this time s/p precip delivery pt anemic denies dizziness or weakness ambulating well ff@u-2 mild lochia well good support encouraged pt to increase iron in diet and start iron bid rtc 4 weeks d/c home Physical Exam (OB) Vital Signs: Temp Pulse Resp BP Pulse Ox 98.2 F 94 16 117/55 L 94 09/17/16 09:43 09/17/16 09:43 09/17/16 09:43 09/17/16 09:43 09/17/16 09:43 Intake & Output 09/16/16 09/17/16 09/18/16 06:59 06:59 06:59 Weight 78 kg - Lochia Lochia Amount: Scant < 10 ml Lochia Color: Rubra/Red - Abdomen Description: Soft, Round Hernia Present: No Fundal Description: Firm, Midline Fundal Height: u/u - u/2 Objective-Diagnostic Laboratory: 09/17/16 07:33 09/17/16 07:33 WBC 14.2 H RBC 2.31 L Hgb 6.8 L Hct 20.7 L MCV 89 MCH 29.6 MCHC 33.1 RDW 14.2 H Plt Count 170 Assessment and Plan(PN) - Assessment and Plan (1) GBS (group B Streptococcus carrier), +RV culture, currently Is this a current diagnosis for this admission?: Yes (2) Normal vaginal delivery Is this a current diagnosis for this admission?: Yes (3) Anemia Qualifiers: Anemia type: iron deficiency Is this a current diagnosis for this admission?: Yes - Time Spent with Patient Medications reviewed and adjusted accordingly: Yes
== END 2016-09-17 15:19 | disposition home or self-care (01) | DRG 775 ==
LOC: LR 13:57 → 2S 17:24
PROVIDERS: ADMIT Obstetrics & Gynecology; ATTEND Obstetrics & Gynecology
PROC: 10E0XZZ Delivery of Products of Conception, External Approach (ICD-10-PCS; principal; 2016-09-15)
PROC: 0KQM0ZZ Repair Perineum Muscle, Open Approach (ICD-10-PCS; 2016-09-15)
PROC: 4A1HXCZ Monitoring of Products of Conception, Cardiac Rate, External Approach (ICD-10-PCS; 2016-09-15)
DX: O69.81X0 Labor and delivery complicated by cord around neck, without compression, not applicable or unspecified (principal); O70.1 Second degree perineal laceration during delivery; O76 Abnormality in fetal heart rate and rhythm complicating labor and delivery; O99.02 Anemia complicating childbirth; O99.824 Streptococcus B carrier state complicating childbirth; O62.3 Precipitate labor; D50.9 Iron deficiency anemia, unspecified; Z3A.39 39 weeks gestation of pregnancy; Z37.0 Single live birth
CPT/HCPCS: 36415; 80307; 81005; 85025; 85027; 86592; 86850; 86900; 86901; J1885; J2540

== ENCOUNTER 2017-09-14 10:53 | Emergency (ER) | payer OTHER, MEDICAID ==
[2017-09-14] MEDS ORDERED: IBUPROFEN 600 MG TABLET PO ONE (12:29)
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
[2017-09-14 14:27] VITALS: BP 108/64
== END 2017-09-14 14:27 | disposition home or self-care (01) ==
LOC: ER 10:53
DX: S16.1XXA Strain of muscle, fascia and tendon at neck level, initial encounter (principal); S29.019A Strain of muscle and tendon of unspecified wall of thorax, initial encounter; R51 Headache; M54.2 Cervicalgia; M54.6 Pain in thoracic spine; M54.9 Dorsalgia, unspecified; V43.52XA Car driver injured in collision with other type car in traffic accident, initial encounter
CPT/HCPCS: 72050; 72070; 99284

== ENCOUNTER 2018-11-16 07:47 | Emergency (ER) | payer OTHER ==
[2018-11-16 07:57] VITALS: BP 127/64
[2018-11-16] MEDS ORDERED: ACETAMINOPHEN 325 MG TABLET PO ONE (08:59)
--- NOTE | 2018-11-16 10:06 | RADIOLOGY REPORT (SQ) ---
EXAM DESCRIPTION: SHOULDER LEFT 2 OR MORE VIEWS COMPLETED DATE/TIME: 11/16/2018 9:46 am REASON FOR STUDY: pain COMPARISON: None. NUMBER OF VIEWS: Three views. TECHNIQUE: Internal rotation, external rotation, and Y view images acquired of the left shoulder. LIMITATIONS: None. FINDINGS: MINERALIZATION: Normal. BONES: No acute fracture or dislocation. No worrisome bone lesions. JOINTS: No glenohumeral dislocation. No acromioclavicular joint widening. VISUALIZED LUNGS AND RIBS: No pneumothorax. No rib fracture. SOFT TISSUES: No radiopaque foreign body. OTHER: No other significant finding. IMPRESSION: NEGATIVE STUDY OF THE LEFT SHOULDER. NO RADIOGRAPHIC EVIDENCE OF ACUTE INJURY. TECHNICAL DOCUMENTATION: JOB ID: [id number] [employer]- All Rights Reserved Reading location - IP/workstation name: [email or web address]
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
== END 2018-11-16 10:56 | disposition home or self-care (01) ==
LOC: ER 07:47
DX: M25.512 Pain in left shoulder (principal); W22.09XS Striking against other stationary object, sequela; Y99.0 Civilian activity done for income or pay
CPT/HCPCS: 99283

== ENCOUNTER 2019-05-26 18:26 | Emergency (ER) | payer OTHER ==
[2019-05-26] MEDS ORDERED: IPRATROPIUM/ALBUTEROL 0.5-2.5 MG/3 ML AMPUL NEB ONE (19:31)
--- NOTE | 2019-05-26 19:38 | ER Document Report ---
HPI - HPI Time Seen by Provider: 05/26/19 19:26 Pain Level: 3 Notes: A 29-year-old female presents the ED with complaints of productive cough, congestion that is become progressively worse over the last week. Was seen in urgent care approximately 5 days ago, and told she had a viral URI. Patient been trying [id number] medication without for relief. Denies history of asthma or seasonal allergies. Sick contacts. Denies sore throat, did get tested for the flu at urgent care which was negative. Decreased eating but drinking without issues. Denies fevers, chills, chest pain,palpitations, shortness of breath, dyspnea, nausea, vomiting, diarrhea, abdominal pain, hematuria,blurred vision, double vision, loss of vision, speech changes, LH, dizziness, syncope, headaches, wheezing, ST, neck pain, weakness, bowel or bladder dysfunction, saddle anesthesia, numbness or tingling in bilateral upper or lower extremities equally, muscle paralysis, weakness in bilateral upper or lower extremities equally or rash. - REPRODUCTIVE LMP: 1 week ago Reproductive: DENIES: : Past Medical History - General Information source: Patient - Social History Smoking Status: Current Every Day Smoker Family History: Reviewed & Not Pertinent Patient has suicidal ideation: No Patient has homicidal ideation: No Neurological Medical History: Reports: Hx Migraine Renal/ Medical History: Denies: Hx Peritoneal Dialysis - Immunizations Hx Diphtheria, Pertussis, Tetanus Vaccination: No - unknown per pt Vertical Provider Document - CONSTITUTIONAL Agree With Documented VS: Yes Exam Limitations: No Limitations General Appearance: WD/WN Notes: PHYSICAL EXAMINATION: reviewed vital signs by RN GENERAL: Well-appearing, well-nourished and in no acute distress. HEAD: Atraumatic, normocephalic. EYES: Pupils equal round and reactive to light, extraocular movements intact, conjunctiva are normal. ENT: Nares patent, oropharynx clear without exudates. Moist mucous membranes. NECK: Normal range of motion, supple without lymphadenopathy LUNGS: Diminished breath sounds in upper lobes, after breathing treatment, breath sounds clear to auscultation bilaterally and equal. No wheezes rales or rhonchi. HEART: Regular rate and rhythm without murmurs ABDOMEN: Soft, nontender, nondistended abdomen. No guarding, no rebound. No masses appreciated. Female : deferred Musculoskeletal: Normal range of motion, no pitting or edema. No cyanosis. NEUROLOGICAL: Cranial nerves grossly intact. Normal speech, normal gait. Normal sensory, motor exams PSYCH: Normal mood, normal affect. SKIN: Warm, Dry, normal turgor, no rashes or lesions noted. - INFECTION CONTROL TRAVEL OUTSIDE OF THE [place] IN LAST 30 DAYS: No Course - Re-evaluation Re-evalutation: 05/26/19 19:34 Afebrile vital stable no distress. Nurse's notes reviewed. Chest x-ray negative for wet read for pneumonia, pneumothorax. Presentation is most consistent with a viral upper respiratory infection. Patient is overall well appearance, vitals within normal limits, well-hydrated. Patient denies any headache, neck pain, and has no evidence of meningismus on examination. Lungs are clear bilaterally after breathing treatment. No evidence of respiratory distress. Based on clinical exam and negative cxr , I do not suspect an acute pneumonia, meningitis, strep pharyngitis, or an acute encephalitis. Will discharge patient with return precautions and followup recommendations. They are in agreement this plan have verbalized understanding return precautions. After performing a Medical Screening Examination, I estimate there is LOW risk for ACUTE CORONARY SYNDROME, PULMONARY EMBOLI, RESPIRATORY FAILURE, SEPSIS OR MENINGITIS, thus I consider the discharge disposition reasonable. I have reevaluated this patient multiple times and no significant life threatening changes are noted. The patient and I have discussed the diagnosis and risks, and we agree with discharging home with close follow-up. We also discussed returning to the Emergency Department immediately if new or worsening symptoms occur. We have discussed the symptoms which are most concerning (e.g., changing or worsening pain, trouble swallowing or breathing, neck stiffness, fever) that necessitate immediate return. 05/26/19 20:22 - Vital Signs Vital signs: Temp Pulse Resp BP Pulse Ox 98.4 F 75 20 117/85 99 05/26/19 19:26 05/26/19 19:26 05/26/19 19:26 05/26/19 19:26 05/26/19 19:26 Discharge - Discharge Clinical Impression: Cough Condition: Stable Disposition: HOME, SELF-CARE Instructions: Cough Suppressant & Expectorant Medications, Tessalon Perles ([facility]), Upper Respiratory Illness ([facility]) Additional Instructions: Your chest x-ray was negative. Take medications as described. Carry your Ventolin inhaler on your person. Suck on cough drops and jelly ranchers, take acjg-qyw-lojzfga decongestant such as generic Sudafed to help dry up your sinus congestion. Blow nose regularly, nasal rinses. Use Vicks to help open up her sinuses. Return immediately for any new or worsening symptoms. Follow up with primary care provider, call tomorrow to make followup appointment. Prescriptions: Albuterol Sulfate [Proair Respiclick] 90 mcg IH Q4HP PRN #1 aer.[id number] PRN Reason: Benzonatate [Tessalon Perles 100 mg Capsule] 100 mg PO Q8HP PRN #20 capsule PRN Reason: Prednisone [Deltasone 20 mg Tablet] 3 tab PO DAILY 5 Days #15 tablet Forms: Return to Work Referrals: JERSEY CHILEL MD [COMMUNITY BASED STAFF] - Follow up as needed
--- NOTE | 2019-05-26 20:32 | RADIOLOGY REPORT (SQ) ---
EXAM DESCRIPTION: CLINICAL HISTORY: 29 years Female, cough x 1 week, productive cough COMPARISON: None. FINDINGS: Cardiomediastinal silhouette is not enlarged. Mild hyperinflation including increased AP diameter of the upper chest related to pectus carinatum. No suspicious acute lung pleural bone abnormalities. IMPRESSION: Mild hyperinflation. No acute findings.
[2019-05-26 20:38] VITALS: BP 105/75
== END 2019-05-26 20:39 | disposition home or self-care (01) ==
LOC: ER 18:26
DX: R05 Cough (principal); F17.200 Nicotine dependence, unspecified, uncomplicated
CPT/HCPCS: 94640; 99283; 71046; J7620